=== PATIENT | female | born 1945 | race African-American/Black ===

== ENCOUNTER 2022-02-17 08:48 | Emergency (ER) | payer MEDICARE, SELFPAY ==
--- NOTE | ~2022-02-17 | CT_ITS ---
EXAMINATION: CT abdomen pelvis w con DATE: 02/17/2022 11:18 INDICATION: Lower abdominal pain TECHNIQUE: Computed tomography (CT) of the abdomen and pelvis was performed with 100 CC Omnipaque 350 intravenous contrast. Automated exposure control and iterative reconstruction technique were employe d. Exam dose: 218.17 mGy-cm total exam DLP. COMPARISON: 09/05/2016 CT abdomen pelvis FINDINGS: The lung bases are clear of infiltrate or consolidation. Normal heart size. The gallbladder is absent. No bile duct dilatation is noted. No hepatic, splenic, pancreatic, and adr enal or renal space-occupying mass lesion is detected. Approximately 10 x 13 mm wedge-shaped area of diminished enhancement posterolateral aspect of the rig ht kidney, new since 2017; this may be due to renal infarct, focal pyelonephritis, less likely renal neoplasm. No urinary tract calculus or hydroureteronephrosis. The urinary bladder is unremarkable. Enlarged retroverted uterus with numerous calcified fibroids. There is extensive abdominal aortic calcification as well as prominent calcification at the origin th e celiac artery, prominent superior mesenteric artery calcification, prominent proximal renal artery calcifications. There is prominent calcification of the iliac and femoral arteries. No abdominal aort ic aneurysm. No intraperitoneal or retroperitoneal or pelvic mass lesion or adenopathy or ascites is noted. Normal appendix. No bowel obstruction or intraperitoneal free air is detected. There is a prominent a mount fecal material in the colon. Small fat-containing umbilical hernia. Prominent degenerative spurring in the lower thoracic spine. Mild degenerative spurring of the lumbar spine. Degenerative change at the apophyseal joints with associated grade 1 anterolisthesis at L4-5. Multiple healed posterior left rib fractures. IMPRESSION: Hepatic steatosis Status post cholecystectomy Focal diminished enhancement in the posterolateral lower pole right kidney; differential diagnosis in cludes renal infarct, pyelonephritis, less likely renal neoplasm Small sliding hiatal hernia Normal appendix Enlarged retroverted uterus with numerous calcified fibroids Reviewed, dictated and finalized at [facility]. Reviewed, dictated and finalized at location [facility]. ABLE IRRIGATION OPERATOR IMPRESSION: Hepatic steatosis Status post cholecystectomy Focal diminished enhancement in the posterolateral lower pole right kidney; dif ferential diagnosis includes renal infarct, pyelonephritis, less likely renal n eoplasm Small sliding hiatal hernia Normal appendix Enlarged retroverted uterus with numerous calcified fibroids
[2022-02-17 09:08] VITALS: BP 130/75; PULSE 78; RESP 18; TEMP 36.6; O2SAT 96
--- NOTE | 2022-02-17 09:32 | ED.ABDPAIN ---
HPI - Abdominal Pain General Chief Complaint: Abdominal Pain Stated Complaint: abd pa Time Seen by Provider: 02/17/22 09:15 Source: patient and family Mode of arrival: ambulatory Limitations: no limitations History of Present Illness HPI narrative: This is a 76-year-old female that presents to the emergency department for urinary symptoms ongoing since last night. Reports frequency and urinary incontinence. Reports incontinence is chronic for her though. She does see a urogynecologist in [place] for this. She wears a diaper chronically. She is having some discomfort in her lower abdomen/bladder. Denies fever, vomiting, flank pain, or hematuria. Related Data Allergies Allergy/AdvReac Type Severity Reaction Status Date / Time Penicillins Allergy Intermediate Swelling Verified 02/17/22 09:22 Review of Systems Review of Systems: CONSTITUTIONAL: Denies fever GASTROINTESTINAL: Reports abdominal pain. Denies nausea, vomiting GENITOURINARY: Reports dysuria. Denies hematuria. All systems reviewed & are unremarkable except as noted in HPI and below PMFSH Past Medical History Medical History (Updated 02/17/22 @ 14:43 by Aysha Godinez PA-C) History of diabetes mellitus History of hyperlipidemia History of hypertension Surgical History Surgical History (Updated 02/17/22 @ 09:37 by Aysha Godinez PA-C) History of cholecystectomy Social History Social History (Updated 02/17/22 @ 09:37 by Aysha Godinez PA-C) Smoking status: Former smoker Exam Narrative: GENERAL: Well-appearing, well-nourished, and in no acute distress. HEAD: Normocephalic, atraumatic. EYES: EOMI. CHEST: Clear to auscultation. No respiratory distress. No wheezes rales or rhonchi HEART: Regular rate and rhythm. No murmur heard. Normal peripheral pulses. ABDOMEN: Soft, nondistended, normal active bowel sounds. Mild tenderness to palpation throughout the lower abdomen, without guarding. No CVA tenderness EXTREMITIES: Normal range of motion. No edema. SKIN: Warm, dry, no rash. NEURO: No focal deficits. Alert and oriented x3. PSYCH: Normal mood and affect Course Course Emergency Course: Patient and family updated on work-up. Resting comfortably. Requesting water Consultations Consultation #1: Spoke with Dr. Mckeon, urology had [facility], no intervention needed at this time if this is a renal infarct. Recommends further work-up for cause of possible infarct Date: 02/17/22 Consultation #2: Spoke with hospitalist about patient and workup. Recommends further outpatient evaluation and management Date: 02/17/22 Consultation #3: Spoke with patient's primary doctor who will follow up in clinic Date: 02/17/22 Vital Signs Vital signs: Vital Signs Temperature 97.9 F 02/17/22 09:08 Pulse Rate 78 02/17/22 09:08 Respiratory Rate 18 02/17/22 09:08 Blood Pressure 130/75 02/17/22 09:08 Pulse Oximetry 96 02/17/22 09:08 Temperature 97.9 F 02/17/22 09:08 Pulse Rate 78 02/17/22 09:08 Respiratory Rate 18 02/17/22 09:08 Blood Pressure 130/75 02/17/22 09:08 Pulse Oximetry 96 02/17/22 09:08 MDM - Abdominal Pain MDM Narrative Medical decision making narrative: Patient presents emergency department for lower abdominal pain and urinary symptoms ongoing since yesterday. She is afebrile and nontoxic-appearing. Her vitals are stable. CBC with white blood cell count of 4.1. Also shows normocytic anemia with hemoglobin of 11.1. Metabolic panel with normal kidney function. UA without evidence of infection. Influenza and COVID screens are negative. CT scan of the abdomen and pelvis shows chronic findings as well as a focal diminished area of enhancement in the posterior lateral lower pole the right kidney. Differential diagnosis includes renal infarct, pyelonephritis, less likely renal neoplasm. I do not suspect pyelonephritis as her urine is normal. She is afebrile without leukocytosis. Patient follows with urology [facility]
[2022-02-17 09:44] LABS: Basophils Percent Auto 0.2 % (0.2-1.2); Eosinophils Absolute Auto 0.1 K/mm3 (0-0.3); Eosinophils Percent Auto 1.9 % (0-4.4); Hematocrit 35.1 % (37.0-47.0); Hemoglobin 11.1 g/dL (12.0-15.0); Lymphocytes Absolute Auto 1.56 K/mm3 (0.9-3.2); Mean Corpuscular HGB Conc 31.6 g/dl (32-36); Mean Corpuscular Hemoglobin 29.2 pg (26-34); Mean Corpuscular Volume 92.4 fl (80-100); Mean Platelet Volume 10.3 fl (7.4-10.4); Monocytes Absolute Auto 0.3 K/mm3 (0.1-0.6); Monocytes Percent Auto 6.8 % (2.6-8.5); Neutrophils Absolute Auto 2.2 K/mm3 (1.3-6.7); Neutrophils Percent Auto 53.1 % (45.5-73.1); Platelet Count Result 196 k/mm3 (150-375); Red Cell Distribution Width 11.4 % (11.5-14.5); White Blood Count 4.1 K/mm3 (4.5-10.0)
[2022-02-17 10:00] LABS: Alanine Aminotransferase 16 U/L (6-35); Albumin Level 4.4 g/dL (3.5-5.1); Alkaline Phosphatase 75 U/L (38-126); Anion Gap 6 mmol/L (8-16); Aspartate Amino Transferase 24 U/L (14-36); Bilirubin,Total 0.5 mg/dL (0.2-1.3); Blood Urea Nitrogen 19 mg/dL (7-17); Calcium 9.3 mg/dL (8.4-10.2); Carbon Dioxide 31 mmol/L (22-30); Chloride 100 mmol/L (98-107); Estimated CRCL calculation 46 ml/min; Estimated Glomerular Filt Rate > 60; Glucose 195 mg/dL (65-110); Lipase 116 U/L (23-300); Potassium 3.9 mmol/L (3.4-5.0); Sodium 137 mmol/L (137-145)
[2022-02-17 10:20] LABS: Add Urine Microscopic? YES; Appearance Urine Clear (Clear); Bilirubin Urine Negative (Negative); Blood Urine Trace-Intact (Negative); Color Urine Yellow (Yellow); Glucose Urine UA Negative (Negative); Ketones Urine Negative (Negative); Leukocyte Esterase Ur Negative LEU/UL (Negative); Nitrate Urine Negative (Negative); Protein Urine Negative (Negative); Urobilinogen Urine 0.2 mg/dL (<2.0)
[2022-02-17 10:40] LABS: Mucus Urine Rare /lpf; RBC Urine 0-2 /hpf (0-2)
[2022-02-17 11:00] VITALS: BP 150/72; PULSE 72; RESP 16; O2SAT 98
--- NOTE | 2022-02-17 12:06 | ECG_ITS ---
Measurements Intervals [place] Rate: 92 P: 68 PA: 183 QRS: -35 QRSD: 93 T: 33 QT: 387 QTc: 481 Interpretive Statements SINUS RHYTHM POSSIBLE LEFT ATRIAL ENLARGEMENT LOW QRS VOLTAGE IN PRECORDIAL LEADS ANTEROSEPTAL INFARCT, AGE INDETERMINATE INFERIOR INFARCT, AGE INDETERMINATE BASELINE ARTIFACT- I, II, AVR ABNORMAL ECG NO PREVIOUS ECG AVAILABLE FOR COMPARISON Electronically Signed On 02-17-2022 14:48:14 LEGAL SECRETARY RECEPTIONIST by Ajith Jimenez D.O.
[2022-02-17 13:02] LABS: CRP 0.5 mg/dL (<1.0)
[2022-02-17 13:11] VITALS: BP 138/87; PULSE 72; RESP 16; O2SAT 100
[2022-02-17 13:16] VITALS: BP 151/87; PULSE 68; RESP 20; O2SAT 100
[2022-02-17 13:50] LABS: Influenza A QL RT-PCR Negative (Negative); Influenza B QL RT-PCR Negative (Negative); SARS-CoV-2 RNA PCR Negative
[2022-02-17] MEDS: SODIUM CHLORIDE 0.9% IV 500 ML 999 ML IV CONT (14:25)
[2022-02-17 14:31] VITALS: BP 161/88; PULSE 70; RESP 20; O2SAT 100
[2022-02-17 15:15] VITALS: BP 155/82; PULSE 70; RESP 18; O2SAT 96
[2022-02-17 15:36] LABS: Prothrombin Time 12.8 Seconds (11.1-14.7)
[2022-02-17 15:37] LABS: Partial Thromboplastin Time 29.2 SECONDS (22.3-36.8)
[2022-02-17 15:57] LABS: Erythrocyte Sedimentation Rate 42 mm/hr (0-20)
[2022-02-20 04:10] LABS: Lupus dRVVT Screen 35 sec (<=45); PTT-LA Screen 33 sec (<=40)
[2022-02-21 07:49] LABS: Antithrombin III Activity 163 % normal (80-135); Protein C Antigen 115 % normal (70-140)
[2022-02-21 09:07] LABS: Anti Nuclear Antibody Titer 1:40 (Negative)
[2022-02-22 18:16] LABS: Factor V (Leiden) Mutation NEGATIVE
[2022-02-23 04:25] LABS: Anti Cardio Antibody IgM 5.4 MPL-U/mL (<20.0); Anti Cardiolipin Antibody IgG <2.0 GPL-U/mL (<20.0)
== END 2022-02-17 15:20 | disposition home or self-care (01) ==
PROVIDERS: Emergency Medicine; Emergency Provider Physician Assistant; PCP Family Medicine
DX: R93.421 Abnormal radiologic findings on diagnostic imaging of right kidney (principal); R10.30 Lower abdominal pain, unspecified; Z20.822 Contact with and (suspected) exposure to COVID-19; E11.9 Type 2 diabetes mellitus without complications; E78.5 Hyperlipidemia, unspecified; I10 Essential (primary) hypertension; Z87.891 Personal history of nicotine dependence; K76.0 Fatty (change of) liver, not elsewhere classified; K44.9 Diaphragmatic hernia without obstruction or gangrene; N85.4 Malposition of uterus; R94.31 Abnormal electrocardiogram [ECG] [EKG]
CPT/HCPCS: 36415; 51701; 74177; 80053; 81001; 81240; 81241; 81291; 83690; 85025; 85300; 85302; 85303; 85306; 85610; 85613; 85652; 85730; 86038; 86039; 86140; 86147; 87086; 87636; 93005; 96361; 96365; 99284; J0131; J7040; Q9967

== ENCOUNTER 2022-03-24 17:45 | Emergency (ER) | payer MEDICARE, SELFPAY ==
--- NOTE | ~2022-03-24 | CT_ITS ---
EXAMINATION: CT abdomen pelvis w con DATE: 03/24/2022 21:58 INDICATION: Lower abdominal pain TECHNIQUE: Computed tomography (CT) of the abdomen and pelvis was performed with 100 mL Omnipaque-350 intravenous contrast. Automated exposure control and iterative reconstruction technique were employe d. The dose-length product was 216.93 mGy-cm. COMPARISON: 02/17/2022 FINDINGS: Mild atelectasis in the bilateral lower lungs. Heart size is normal. No pericardial or pleural effusi on. Unchanged mild intra and extra hepatic biliary ductal dilation likely related to prior cholecyste ctomy. Liver is otherwise unremarkable. Pancreas, spleen and bilateral adrenal glands are normal. Sma ll regions of chronic cortical scarring at both kidneys likely sequela of prior infection or infarcti on. Bowels including the appendix are normal. Fibroid uterus with multiple calcified fibroids. Bilate ral adnexa are unremarkable. No free intraperitoneal gas or fluid. No pathologically enlarged abdomin al or pelvic lymphadenopathy. There is calcified atherosclerosis of the aorta and many of the other a rteries. Moderate lumbar spondylosis with 4 mm anterolisthesis L4 on L5. IMPRESSION: 1. No acute intra-abdominal/pelvic process. Normal appendix. 2. Fibroid uterus. Reviewed, dictated and finalized at location [facility]. C TYPOGRAPHER
[2022-03-24 18:02] VITALS: BP 129/69; PULSE 93; RESP 18; TEMP 36.9; O2SAT 100
--- NOTE | 2022-03-24 19:54 | ED.ABDPAIN ---
HPI - Abdominal Pain General Chief Complaint: Abdominal Pain Stated Complaint: pelvic pain Time Seen by Provider: 03/24/22 19:46 History of Present Illness HPI narrative: Patient is a 77-year-old female with a history of uterine prolapse here for evaluation of urinary retention. Patient states that she has been unable to urinate except for small volumes throughout the day. She is also having some acute on chronic pelvic pain in her suprapubic region since being unable to urinate. Reports nausea and vomiting over the past month. No fevers or chills, dysuria, urgency, flank pain. Patient was seen here in February for urinary symptoms and was found to have a possible renal infarction; followed up as an outpatient with her PCP and this was reassuring, repeat imaging of the kidneys did not show infarct. Related Data Allergies Allergy/AdvReac Type Severity Reaction Status Date / Time Penicillins Allergy Intermediate Swelling Verified 02/17/22 09:22 Review of Systems Review of Systems: Gen.: Denies fevers or chills Eyes: Denies eye pain or visual change ENT: Denies congestion Respiratory: Denies shortness of breath or cough CV: Denies chest pain or palpitations GI: Reports suprapubic abdominal pain reports urinary retention Musculoskeletal: Denies back pain or muscle pain Neuro: Denies numbness, tingling, weakness or focal weakness Skin: Denies rash Except as documented, all other systems reviewed and negative PMFSH Past Medical History Medical History History of diabetes mellitus History of hyperlipidemia History of hypertension Surgical History Surgical History History of cholecystectomy Social History Social History (Updated 02/17/22 @ 09:37 by Aysha Godinez PA-C) Smoking status: Former smoker Exam Narrative: APPEARANCE: Well appearing, no pain in distress, well-nourished. Head: Normocephalic and atraumatic. EYES: PERRLA/EOMI, conjunctivae clear NOSE: No nasal drainage EARS: External ear normal in appearance THROAT: Oropharynx is clear. Mucous membranes are moist. NECK: Supple. No adenopathy, no masses. RESPIRATORY: Airway patent, respirations nonlabored. Clear to auscultation bilaterally, no rales, rhonchi, wheezing. CARDIOVASCULAR: Regular rate and rhythm without murmurs, rubs, or gallops. ABDOMINAL:Slight tenderness to palpation in suprapubic region. Normoactive bowel sounds. Soft, nondistended. No rebound tenderness or guarding. MUSCULOSKELETAL: Extremities are warm and well-perfused. Moves all extremities well. No edema. NEURO: Normal speech. No focal neurologic deficits. SKIN: Skin is warm and dry. No rashes. PSYCHIATRIC: Normal affect/mood.. Course Vital Signs Vital signs: Vital Signs Temperature 98.5 F 03/24/22 18:02 Pulse Rate 93 03/24/22 18:02 Respiratory Rate 18 03/24/22 18:02 Blood Pressure 129/69 03/24/22 18:02 Pulse Oximetry 100 03/24/22 18:02 Oxygen Delivery Room Air 03/24/22 18:02 Temperature 98.5 F 03/24/22 18:02 Pulse Rate 93 03/24/22 18:02 Respiratory Rate 18 03/24/22 18:02 Blood Pressure 129/69 03/24/22 18:02 Pulse Oximetry 98 03/24/22 21:45 Oxygen Delivery Room Air 03/24/22 18:02 MDM - Abdominal Pain MDM Narrative Medical decision making narrative: 77-year-old female with a history of uterine prolapse and chronic issues with overflow incontinence here for evaluation of urinary retention over the past day. Bladder scan shows 200 cc of urine in her bladder but patient states she cannot urinate. Patient was straight cathed for sample which does not show any evidence of infection. Her basic labs are unremarkable aside from hemoglobin of 9.8 which appears chronic. Denies acute bleeding. CT abdomen pelvis shows a fibroid uterus but no acute process. Patient was able to void on her own while in the ED. Pain m
[2022-03-24 20:40] LABS: Basophils Percent Auto 0.2 % (0.2-1.2); Eosinophils Absolute Auto 0.2 K/mm3 (0-0.3); Eosinophils Percent Auto 3.5 % (0-4.4); Hematocrit 30.9 % (37.0-47.0); Hemoglobin 9.8 g/dL (12.0-15.0); Lymphocytes Absolute Auto 2.27 K/mm3 (0.9-3.2); Lymphocytes Percent Auto 44.5 % (18.3-44.2); Mean Corpuscular HGB Conc 31.7 g/dl (32-36); Mean Corpuscular Hemoglobin 28.6 pg (26-34); Mean Corpuscular Volume 90.1 fl (80-100); Mean Platelet Volume 10.4 fl (7.4-10.4); Monocytes Absolute Auto 0.4 K/mm3 (0.1-0.6); Monocytes Percent Auto 7.6 % (2.6-8.5); Neutrophils Absolute Auto 2.3 K/mm3 (1.3-6.7); Neutrophils Percent Auto 44.2 % (45.5-73.1); Platelet Count Result 261 k/mm3 (150-375); Red Blood Count 3.43 M/mm3 (4.2-5.4); Red Cell Distribution Width 11.7 % (11.5-14.5); White Blood Count 5.1 K/mm3 (4.5-10.0)
[2022-03-24 20:50] LABS: Alanine Aminotransferase 11 U/L (6-35); Alkaline Phosphatase 100 U/L (38-126); Anion Gap 6 mmol/L (8-16); Aspartate Amino Transferase 22 U/L (14-36); Bilirubin,Total 0.4 mg/dL (0.2-1.3); Blood Urea Nitrogen 16 mg/dL (7-17); Calcium 9.1 mg/dL (8.4-10.2); Carbon Dioxide 30 mmol/L (22-30); Chloride 100 mmol/L (98-107); Estimated CRCL calculation 37 ml/min; Estimated Glomerular Filt Rate > 60; Glucose 108 mg/dL (65-110); Potassium 4.1 mmol/L (3.4-5.0); Sodium 136 mmol/L (137-145)
[2022-03-24 21:31] LABS: Appearance Urine Clear (Clear); Bilirubin Urine Negative (Negative); Blood Urine Negative (Negative); Color Urine Yellow (Yellow); Glucose Urine UA Negative (Negative); Ketones Urine Trace mg/dL (Negative); Leukocyte Esterase Ur Negative LEU/UL (Negative); Nitrate Urine Negative (Negative); Protein Urine Negative (Negative); Specific Grav Ur 1.015 (1.001-1.035); Urobilinogen Urine 0.2 mg/dL (<2.0)
[2022-03-24] MEDS: MORPHINE SULFATE (*CRX) 4 MG/ML INJ IV PUSH (21:39)
[2022-03-24 21:41] VITALS: O2SAT 100
[2022-03-24 21:45] VITALS: O2SAT 98
[2022-03-24 21:46] LABS: Bacteria Urine Trace /hpf; Mucus Urine Rare /lpf; Squamous Epithelial Cell Urine Rare /hpf (Few); WBC Urine 0-3 /hpf
[2022-03-24 21:48] LABS: Add Urine Microscopic? YES
== END 2022-03-24 23:20 | disposition home or self-care (01) ==
PROVIDERS: Emergency Provider Physician Assistant; PCP Family Medicine
DX: D25.9 Leiomyoma of uterus, unspecified (principal); E11.9 Type 2 diabetes mellitus without complications; E78.5 Hyperlipidemia, unspecified; I10 Essential (primary) hypertension
CPT/HCPCS: 36415; 74177; 80053; 81001; 85025; 96374; 99284; J2270; Q9967

== ENCOUNTER 2022-04-18 11:30 | Inpatient (IN) | payer MEDICARE, SELFPAY ==
[2022-04-18] VITALS (49 sets, daily range): BP systolic 85–183; BP diastolic 60–107; PULSE 93–182; RESP 10–34; TEMP 36.4–36.9; O2SAT 75–100; BMI 22.6
--- NOTE | ~2022-04-18 | US_ITS ---
EXAMINATION: US pelvic complete w TV DATE: 04/18/2022 17:41 INDICATION: Lower abdominal pain TECHNIQUE: Multiple transabdominal and endovaginal sonographic images of the pelvis were obtained. COMPARISON: CT, 03/24/2022 FINDINGS: The uterus measures 5.8 x 7.8 x 5.7 cm. The endometrial complex measures 1 mm. There are mu ltiple calcified and noncalcified fibroids of the uterus. The right ovary measures 2.1 x 2.1 x 0.8 cm . The left ovary measures 1.6 x 2.1 x 0.6 cm. There is normal vascular flow in the ovaries. There is no free fluid in the pelvis. IMPRESSION: 1. Fibroid uterus. Reviewed, dictated and finalized at location F. R MIXER IMPRESSION: 1. Fibroid uterus.
--- NOTE | ~2022-04-18 | BM_ITS ---
EXAMINATION: CCL bone marrow asp w bx diag DATE: 04/23/2022 08:59 INDICATION: Anemia. TECHNIQUE: A time-out was performed to verify the patient's name, date of , and procedure to b e performed. The procedure including the risks, benefits, and alternatives was discussed with the pat ient. Risks discussed included bleeding and infection. The patient understood the risks and agreed to proceed. The skin overlying the left ilium was prepped and draped in usual sterile fashion. Anesth etic was administered with 1% lidocaine subcutaneously. 50 mcg fentanyl IV was given for pain control . An 11 gauge needle was inserted into the ilium with fluoroscopic guidance. Bone marrow was aspirat ed. An 8 gauge needle was then inserted into the ilium with fluoroscopic guidance. A core bone marrow biopsy was obtained. There were no immediate complications. Fluoroscopy exposure time was 0.0 minute s. The total number of images was 10. FINDINGS: Real-time fluoroscopy demonstrates a marker overlying the left posterior superior iliac spi ne. IMPRESSION: 1. Fluoro-guided bone marrow aspiration. 2. Fluoro-guided bone marrow core biopsy. Reviewed, dictated and finalized at location A. ADMINISTRATOR
--- NOTE | ~2022-04-18 | CT_ITS ---
EXAMINATION: CT abdomen pelvis w con INDICATION: Nausea and vomiting, pelvic pain TECHNIQUE: Computed tomographic images of the abdomen and pelvis were obtained after the administrati on of 100 cc of Omnipaque 350 intravenous contrast. The dose-length product (DLP) was 209.65 mGy-cm. Automated exposure control and iterative reconstruction technique were employed. COMPARISON: 03/24/2022 FINDINGS: Minimal dependent atelectasis is present in the lung bases. The heart size is normal. There is a small sliding hiatal hernia. There is wall thickening of the stomach. The gallbladder is surgic ally absent. There is mild enlargement of the common bile duct and central intrahepatic ducts which i s likely due to post cholecystectomy state. The liver, spleen, pancreas, and adrenal glands are nilesh l. Again noted are small areas of cortical scarring in the kidneys. There is calcified atherosclerosi s of the aorta and many of the other arteries. No pathologically enlarged abdominal or pelvic lymph n odes are identified. No free intraperitoneal gas or evidence of bowel obstruction. There is moderate distention of the urinary bladder. Multiple calcified uterine fibroids are noted. There is mild lumba r spondylosis. IMPRESSION: 1. Moderate distention of the urinary bladder. 2. Wall thickening of the stomach which may reflect gastritis. Reviewed, dictated and finalized at location F. GN TECHNICIAN
--- NOTE | 2022-04-18 12:05 | ED.ABDPAIN ---
HPI - Abdominal Pain General Chief Complaint: Abdominal Pain <ADRYAN Hinson Last Filed: 04/19/22 16:03> Stated Complaint: abd/rectal pain <ADRYAN Hinson Last Filed: 04/19/22 16:03> Time Seen by Provider: 04/18/22 11:51 <ADRYAN Hinson Last Filed: 04/19/22 16:03> History of Present Illness HPI narrative: 77-year-old female with a history of chronic pelvic pain here for evaluation of acute on chronic pelvic pain over the past day. Patient has seen [facility] and is set to see urogyn on Tuesday. Daughter states that patient cannot wait due to severity of pain today. No relief after [place] which was prescribed by her merchandise shopper. Unclear etiology of pain, patient has been told that she had a fibroid but also uterine prolapse that both might of been contributing. She has chronic issues with urinary retention. Denies any fevers, chills, nausea or vomiting, systemic symptoms. No rectal bleeding or vaginal bleeding. She has an EGD scheduled on Tuesday for recurrent nausea and vomiting. Had a CT scan at the end of February that was normal aside from fibroids. <ADRYAN Hinson Last Filed: 04/19/22 16:03> Related Data Home Medications: Home Medications Medication Instructions Recorded Confirmed atorvastatin 40 mg tablet 40 mg PO HS 03/26/22 04/18/22 dicyclomine 20 mg tablet 20 mg PO BID 03/26/22 04/18/22 glimepiride 2 mg tablet 2 mg PO QAM 03/26/22 04/18/22 metformin 1,000 mg tablet 1,000 mg PO DAILY 03/26/22 04/18/22 carbidopa 25 mg-levodopa 100 mg 1 tablet PO TID 04/18/22 04/19/22 tablet pantoprazole 40 mg tablet,delayed 40 mg PO DAILY 04/18/22 04/18/22 release aspirin 81 mg tablet 81 mg PO DAILY 04/19/22 04/19/22 <ADRYAN Hinson Last Filed: 04/19/22 16:03> Allergies/Adverse Reactions: Allergies Allergy/AdvReac Type Severity Reaction Status Date / Time Penicillins Allergy Intermediate Swelling Verified 03/26/22 10:20 <Aysha Argueta PA-C - Last Filed: 04/19/22 16:03> Review of Systems Review of Systems: Gen.: Denies fevers or chills Eyes: Denies eye pain or visual change ENT: Denies congestion Respiratory: Denies shortness of breath or cough CV: Denies chest pain or palpitations GI: Denies abdominal pain nausea, emesis or diarrhea reports lower pelvic pain Musculoskeletal: Denies back pain or muscle pain Neuro: Denies numbness, tingling, weakness or focal weakness Skin: Denies rash Except as documented, all other systems reviewed and negative <ADRYAN Hinson Last Filed: 04/19/22 16:03> [facility] Past Medical History Medical History: Medical History CVA (cerebral vascular accident) Dementia due to Parkinson's disease Depression with anxiety Essential hypertension Fibroid uterus GERD (gastroesophageal reflux disease) Hemolytic anemia History of ectopic Hyperlipidemia Kidney stones Type 2 diabetes mellitus <Aysha Argueta PA-C - Last Filed: 04/19/22 16:03> Surgical History Surgical History: Surgical History History of cholecystectomy Status post cataract extraction and insertion of intraocular lens of left eye <Aysha Argueta PA-C - Last Filed: 04/19/22 16:03> Family History Family History: Family History Mother Diabetes mellitus Sibling Diabetes mellitus Sibling Heart attack Father Homicide Victim of homicide Daughter Hypothyroidism <Aysha Argueta PA-C - Last Filed: 04/19/22 16:03> Social History Social History: Social History Social History: The patient lives with her son and [id number] and their children. She has lived with them since 2021. She is a retired OBGYN nurse. She has 3 sons and 1
[2022-04-18 12:09] LABS: Basophils Percent Auto 0.3 % (0.2-1.2); Eosinophils Absolute Auto 0.1 K/mm3 (0-0.3); Eosinophils Percent Auto 1.2 % (0-4.4); Hematocrit 25.8 % (37.0-47.0); Hemoglobin 7.9 g/dL (12.0-15.0); Immature Granulocyte Absolute 0.03 K/mm3 (0.00-0.031); Immature Granulocyte Percent A 0.4 % (0-0.5); Lymphocytes Absolute Auto 2.08 K/mm3 (0.9-3.2); Lymphocytes Percent Auto 30.4 % (18.3-44.2); Mean Corpuscular HGB Conc 30.6 g/dl (32-36); Mean Corpuscular Hemoglobin 30.4 pg (26-34); Mean Corpuscular Volume 99.2 fl (80-100); Mean Platelet Volume 10.4 fl (7.4-10.4); Monocytes Absolute Auto 0.6 K/mm3 (0.1-0.6); Monocytes Percent Auto 8.9 % (2.6-8.5); Neutrophils Percent Auto 58.8 % (45.5-73.1); Platelet Count Result 263 k/mm3 (150-375); Red Cell Distribution Width 12.8 % (11.5-14.5); White Blood Count 6.8 K/mm3 (4.5-10.0)
[2022-04-18 12:21] LABS: Alanine Aminotransferase 11 U/L (6-35); Albumin Level 4.8 g/dL (3.5-5.1); Alkaline Phosphatase 95 U/L (38-126); Anion Gap 8 mmol/L (8-16); Aspartate Amino Transferase 26 U/L (14-36); Bilirubin,Total 3.3 mg/dL (0.2-1.3); Blood Urea Nitrogen 32 mg/dL (7-17); Calcium 9.9 mg/dL (8.4-10.2); Carbon Dioxide 27 mmol/L (22-30); Chloride 100 mmol/L (98-107); Estimated Glomerular Filt Rate > 60; Glucose 204 mg/dL (65-110); Lipase 231 U/L (23-300); Potassium 3.4 mmol/L (3.4-5.0); Sodium 135 mmol/L (137-145)
[2022-04-18 12:59] LABS: Prothrombin Time 13.1 Seconds (11.1-14.7)
[2022-04-18 13:00] LABS: Partial Thromboplastin Time 29.1 SECONDS (22.3-36.8)
[2022-04-18 13:03] LABS: Iron 235 ug/dL (37-170); Lactate Dehydrogenase 282 U/L (120-246)
[2022-04-18 13:12] LABS: Percent Iron Saturation 92 % (20-50)
[2022-04-18 13:21] LABS: Appearance Urine Clear (Clear); Bacteria Urine None Seen /hpf; Bilirubin Urine 1+ (Negative); Blood Urine Negative (Negative); Color Urine Dark Yellow (Yellow); Glucose Urine UA Negative (Negative); Ketones Urine Trace mg/dL (Negative); Leukocyte Esterase Ur Trace LEU/UL (Negative); Need Manual Microscopic Reviewed; Nitrate Urine Positive (Negative); Non Pathogenic Casts 0-2; Protein Urine 2+ mg/dL (Negative); RBC Urine 0-2 /hpf (0-2); Specific Grav Ur 1.021 (1.001-1.035); Squamous Epithelial Cell Urine None seen /hpf (Few); WBC Urine 0-5 /hpf
[2022-04-18 13:22] LABS: Add Urine Microscopic? YES
[2022-04-18] MEDS: SODIUM CHLORIDE 0.9% IV 1,000 ML 999 ML IV CONT (13:23)
[2022-04-18] MEDS: MORPHINE SULFATE (*CRX) 4 MG/ML INJ IV PUSH ×2 (13:23→18:44)
[2022-04-18] MEDS: ONDANSETRON INJ 4 MG/2 ML VIAL IV PUSH ×2 (13:24→19:47)
[2022-04-18] MEDS: LACTATED RINGERS 1,000 ML 999 ML IV CONT (18:44)
--- NOTE | 2022-04-18 19:15 | PC.NURSE ---
Assumed care of pt. at this time. Report from FRANCHESKA Wray
--- NOTE | 2022-04-18 19:50 | PC.NURSE ---
assumed care of pt. at this time. Report from FRANCHESKA Wray
[2022-04-18 19:58] LABS: Glucose Point of Care 118 mg/dl (65-105)
[2022-04-18 20:22] LABS: Lactic Acid Reflex 2.6 mmol/L (0.7-2.0)
[2022-04-18] MEDS: dilTIAZem HCl INJ 25 MG/5 ML VIAL 20 MG IV PUSH (21:39)
[2022-04-18] MEDS: dilTIAZem 100 MG/100 ML 100 MG/100 ML BAG IV CONT (21:39)
--- NOTE | 2022-04-18 21:44 | ECG_ITS ---
Measurements Intervals [place] Rate: 180 P: CA: 0 QRS: -41 QRSD: 123 T: 88 QT: 271 QTc: 470 Interpretive Statements ATRIAL FIBRILLATION WITH RAPID VENTRICULAR RESPONSE LEFT AXIS DEVIATION LEFT BUNDLE BRANCH BLOCK BASELINE ARTIFACT- I, II, AVR, AVL, AVF ABNORMAL ECG COMPARED TO ECG 02/17/2022 14:34:33 ATRIAL FIBRILLATION NOW PRESENT Electronically Signed On 04-19-2022 8:22:54 GRANITE SETTER by Ajith Jimenez D.O.
--- NOTE | 2022-04-18 21:44 | ECG_ITS ---
Measurements Intervals [place] Rate: 121 P: MD: 0 QRS: -29 QRSD: 114 T: 52 QT: 353 QTc: 501 Interpretive Statements ATRIAL FIBRILLATION WITH RAPID VENTRICULAR RESPONSE VENTRICULAR PREMATURE COMPLEX ANTEROSEPTAL INFARCT, AGE INDETERMINATE INFERIOR INFARCT, AGE INDETERMINATE BORDERLINE ST-T WAVE ABNORMALITY- HIGH LATERAL LEADS ABNORMAL ECG COMPARED TO ECG 02/17/2022 14:34:33 ATRIAL FIBRILLATION NOW PRESENT Electronically Signed On 04-19-2022 6:20:15 ESTIMATION MANAGER by Ajith Jimenez D.O.
--- NOTE | 2022-04-18 21:45 | PC.NURSE ---
2132 RN noted pt. HR to be 177. ERP made aware, ekg obtained. pt. placed on paddles 2133 VORB 6 mg adenosine given IVP 2141 4 mg zofran given ivp vorb erp for nausea.
[2022-04-18] MEDS: ONDANSETRON INJ 4 MG/2 ML VIAL (21:54)
[2022-04-18 22:59] LABS: Reflex Lactic Acid Yes or No Add Lactic
--- NOTE | 2022-04-18 23:08 | PM.IMHP ---
H&P: HPI History of Present Illness Date/Time: 04/18/22 23:08 Chief Complaint: Nausea, vomiting and pelvic pain Narrative: 77-year-old female with a past medical history of Parkinson's disease with associated mild dementia, type 2 diabetes mellitus, GERD, and uterine fibroids with uterine prolapse who presented to the ER with lower pelvic pain and and nausea vomiting. Source of information is ER records, outpatient office note and patient report. The patient is a relatively good historian given her history of dementia. The patient has been having lower abdominal pain and urinary frequency for about 2 years. However for several months symptoms have evidently been worsening. She went to see Gynecology on the 26 of March who referred her to uro Gyne. The triage notes as the patient is from 3 times this week however the the patient states that she has been vomiting a lot more recently. She had been having intractable nausea and vomiting in the ER. She has had a history of problems with urinary retention in the past. CT in the ER demonstrated bladder distension. Initially they did not put a Archuleta catheter in the ER but the patient did approximately 600 mL of urine per straight catheterization per her report. After Archuleta catheter was placed patient had dark yellow urine present that was approximately another 600 mL. She does report sensation of incomplete bladder emptying most the time. She has been having pretty persistent dysuria but she cannot give me a time frame regarding her dysuria. She reports significant relief in her abdominal pain is she has had no further nausea vomiting since that time. She did received 3 doses of Zofran in the ER. Patient's EKG in the ER did demonstrate QT prolongation. Patient denies any rectal bleeding or vaginal bleeding. She denies melena or difficulty passing stools. Her last bowel movement was 3 days ago but she relates this is due to decreased oral intake. She has an appointment scheduled for an EGD on Tuesday with a financial economist in [place]. While the patient was down in the ER just a after she has had some episodes of vomiting she did flip into AFib RVR. Her heart rate was as high as 180s. The patient received adenosine without improvement in her symptoms. They also tried vagal maneuvers. Patient received Cardizem bolus and the patient's EKG seem more consistent with AFib RVR. Heart rate improved to the low 110s. Her blood pressures remained stable. She has no history of cardiomyopathy or cardiac arrhythmias in the past. Even with her heart in AFib the patient did not have any sensation of palpitations or heart racing. She denied any chest pain. She denies any shortness of breath. She does have frequent symptoms of GERD and burning in her throat. She reports her emesis is clear without is bilious emesis or hematemesis. She reports that she feels ?chronic leak chilled and hot flashes. The patient does report history of hemolytic anemia. She reports that he was many many years ago. She does not remember the circumstances surrounding the hemolytic anemia. She denies any easy bruising or bleeding. She has not noticed any rashes. He denies any orthopnea and reports that she usually sleeps on her side or lying on her abdomen. She denies paroxysmal nocturnal dyspnea. She states that she does not know if she has any shortness of breath with activity as she is mostly sedentary. Review of Systems Review of Systems: 12 systems were reviewed with pertinent positives and negatives per HPI. Except as documented in the HPI, all other systems were reviewed and are negative. [facility] Past Medical History Medical History (Updated 04/19/22 @ 07:55 by Sydnee Fernando, ) CVA (cerebral vascular accident) Dementia due to Parkinson's disease Depression with anxiety Essential hypertension Fibroid uterus GERD (gastroesophageal reflux disease) Hemolytic anemia History of ectopic Hyperlipidemia Ki
--- NOTE | 2022-04-18 23:50 | PC.NURSE ---
This patient, Leonard Nunn, was admitted to IMU Room 207-01 on 04/18/22 at 2335. Patient/family oriented to hospital policies and general routines including ID bracelet, bed and alarms, visiting hours, pain management, procedures, bathroom and other care routines, personal items, smoking policy, room service/diet, and visiting hours. Information on how to activate the Rapid Response Team has been discussed. Patient/Family are encouraged to report perceived risks to care and to ask questions if they do not understand what they are told or what they should do.
[2022-04-19] VITALS (14 sets, daily range): BP systolic 108–143; BP diastolic 43–73; PULSE 78–106; RESP 12–18; TEMP 36.2–36.7; O2SAT 96–100; BMI 19.1
--- NOTE | 2022-04-19 | ECHO_ITS ---
Patient Info Name: Leonard Nunn Age: 77 years : 1945 Gender: Female Ht: 64 in Wt: 119 lbs BSA: 1.56 m2 HR: 86 bpm BP: 124 / 43 mmHg Heart Rhythm: Sinus Rhythm Exam Date: 04/19/2022 1:25 PM Exam Location: [facility] Patient Status: Outpatient Admit Date: 04/18/2022 Staff Ordering Physician: Sydnee Fernando DO Manager Document: Kendell Peterson RDCS, RT Attending Provider: Sydnee Fernando DO Referring Physician: Kassie DOTY; Exam Type: CA echo doppler color flow Study Info Indications I48.1 - Persistent atrial fibrillation Complete two-dimensional, color flow and Doppler transthoracic echocardiogram is performed. Strain analysis performed. Summary 1. Complete two-dimensional, color flow and Doppler transthoracic echocardiogram is performed. 2. Left ventricular chamber dimension is normal. 3. There is mildly increased left ventricular wall thickness. 4. Left ventricular systolic function is normal, estimated at 50-55%. 5. Cannot exclude regional wall motion abnormalities. 6. The left ventricular diastolic function is grade I diastolic dysfunction. 7. Global longitudinal strain is abnormal at -11 %. 8. Right ventricular systolic function is normal. 9. There is trace mitral valve regurgitation. 10. There is trace tricuspid valve regurgitation. Left Ventricle Cannot exclude regional wall motion abnormalities. Left ventricular chamber dimension is normal. Left ventricular systolic function is normal, estimated at 50-55%. There is mildly increased left ventricular wall thickness. The left ventricular diastolic function is grade I diastolic dysfunction. Global longitudinal strain is abnormal at -11 %. Right Ventricle Right ventricular chamber dimension is normal. Right ventricular systolic function is normal. Left Atria Left atrial chamber dimension is normal. Atrial Septum Intact interatrial septum visualized by color flow imaging. Aortic Valve The aortic valve is probable trileaflet. There is no aortic valve stenosis. There is no aortic valve regurgitation. Pulmonic Valve The pulmonic valve is not well visualized. Mitral Valve The mitral valve has normal leaflets. There is no mitral valve stenosis. There is trace mitral valve regurgitation. Tricuspid Valve There is trace tricuspid valve regurgitation. Pericardium/Pleural There is no pericardial effusion. Inferior Vena Cava Dilated inferior vena cava with <50% collapse upon inspiration consistent with elevated right atrial pressure, 15 mmHg. Aorta The aortic root size at the sinus of Valsalva is normal. Left Ventricular Outflow Tract Name Value Normal LVOT 2D LVOT Diameter 2.1 cm LVOT Doppler LVOT Peak Gradient 1 mmHg LVOT Mean Gradient 1 mmHg LVOT VTI 11 cm LVOT VTI/AV VTI Ratio 0.7 LVOT Stroke Volume 39 ml LVOT CO 3.3 l/min LVOT CI 2.1 l/min/m2 Mitral Valve
[2022-04-19 00:31] LABS: Immature Reticulocyte Fraction 20.8 % (3.0-15.9); Reticulocyte Hemoglobin Conten 33.4 pg (28.2-35.7); Reticulocyte Percent 5.25 % (0.7-4.3); Reticulocytes Absolute 0.14 B/L (32.2-175.7)
[2022-04-19 00:44] LABS: Lactic Acid 2.2 mmol/L (0.7-2.0); Magnesium 1.1 mg/dL (1.6-2.3)
[2022-04-19 01:16] LABS: Thyroid Stimulating Hormone 0.457 uIU/mL (0.465-4.680)
--- NOTE | 2022-04-19 01:21 | PC.NURSE ---
Attempted to call Rodneykalie Koroma (Daughter in Law) for patient update. Was unable to leave a message due to full mailbox. Patient is stable and without complaints.
[2022-04-19 01:26] LABS: Troponin I 0.168 ng/mL (0.000-0.034)
--- NOTE | 2022-04-19 02:01 | PC.NURSE ---
Vero Luther called, update given.
[2022-04-19] MEDS: PANTOPRAZOLE SODIUM IV 40 MG VIAL IV PUSH ×3 (02:11→16:26)
[2022-04-19] MEDS: MAGNESIUM SULF 4 GM/WATER100ML 4 GM/100 ML BAG IVPB (02:11)
[2022-04-19 02:32] LABS: Anion Gap 12 mmol/L (8-16); Blood Urea Nitrogen 20 mg/dL (7-17); Calcium 9.2 mg/dL (8.4-10.2); Carbon Dioxide 23 mmol/L (22-30); Chloride 100 mmol/L (98-107); Estimated CRCL calculation 59 ml/min; Estimated Glomerular Filt Rate > 60; Glucose 186 mg/dL (65-110); Potassium 3.5 mmol/L (3.4-5.0); Sodium 135 mmol/L (137-145)
[2022-04-19] MEDS: POTASSIUM CHLORIDE INJ 40 MEQ in SODIUM CHLORIDE 0.9% IV 500 ML 130 MEQ IVPB (03:21)
[2022-04-19] MEDS: SODIUM CHLORIDE 0.9% IV 1,000 ML 100 ML IV CONT ×2 (03:22→16:26)
[2022-04-19 04:30] LABS: Troponin I 0.474 ng/mL (0.000-0.034)
--- NOTE | 2022-04-19 06:00 | ECG_ITS ---
Measurements Intervals Pfeifer Rate: 99 P: 79 NJ: 172 QRS: -20 QRSD: 94 T: 37 QT: 404 QTc: 519 Interpretive Statements SINUS RHYTHM BORDERLINE R WAVE PROGRESSION, ANTERIOR LEADS CONSIDER INFERIOR INFARCT, AGE INDETERMINATE BASELINE ARTIFACT- V4-V6 ABNORMAL ECG COMPARED TO ECG 04/18/2022 21:44:10 SINUS RHYTHM NOW PRESENT Electronically Signed On 04-19-2022 6:28:42 [employer]EL [employer]IGGER by Ajith Jimenez D.O.
[2022-04-19 07:09] LABS: Lactic Acid Reflex 1.1 mmol/L (0.7-2.0)
[2022-04-19 07:45] LABS: Troponin I 0.573 ng/mL (0.000-0.034)
[2022-04-19 08:02] LABS: Hematocrit 24.6 % (37.0-47.0); Hemoglobin 7.4 g/dL (12.0-15.0); Mean Corpuscular HGB Conc 30.1 g/dl (32-36); Mean Corpuscular Hemoglobin 30.7 pg (26-34); Mean Corpuscular Volume 102.1 fl (80-100); Mean Platelet Volume 11.6 fl (7.4-10.4); Platelet Count Result 246 k/mm3 (150-375); Red Blood Count 2.41 M/mm3 (4.2-5.4); Red Cell Distribution Width 12.9 % (11.5-14.5); White Blood Count 8.2 K/mm3 (4.5-10.0)
[2022-04-19 08:18] LABS: Glucose Point of Care 181 mg/dl (65-105)
[2022-04-19 08:19] LABS: Alanine Aminotransferase 14 U/L (6-35); Albumin Level 4.3 g/dL (3.5-5.1); Alkaline Phosphatase 101 U/L (38-126); Anion Gap 13 mmol/L (8-16); Aspartate Amino Transferase 34 U/L (14-36); Bilirubin,Total 1.7 mg/dL (0.2-1.3); Blood Urea Nitrogen 19 mg/dL (7-17); Calcium 8.8 mg/dL (8.4-10.2); Carbon Dioxide 19 mmol/L (22-30); Chloride 104 mmol/L (98-107); Estimated CRCL calculation 59 ml/min; Estimated Glomerular Filt Rate > 60; Glucose 199 mg/dL (65-110); Lactate Dehydrogenase 303 U/L (120-246); Magnesium 3.1 mg/dL (1.6-2.3); Potassium 3.7 mmol/L (3.4-5.0); Sodium 136 mmol/L (137-145)
[2022-04-19] MEDS: DICYCLOMINE HCL 10 MG CAPSULE 20 MG PO ×2 (08:34→16:26)
[2022-04-19] MEDS: ASPIRIN 81 MG ENTERIC TABLET PO (08:34)
[2022-04-19] MEDS: CARBIDOPA/LEVODOPA 25/100 MG TABLET 2 TABLET PO ×3 (08:48→16:26)
--- NOTE | 2022-04-19 09:04 | PM.IMPN ---
Progress Note: A&P Assessment and Plan (1) Atrial fibrillation with rapid ventricular response: Code(s): I48.91 - Unspecified atrial fibrillation Status: Acute Assessment and Plan: The patient has new onset AFib RVR or at least resuming it is new onset is the patient was unaware of having palpitations or sensation of heart racing. Echocardiogram ordered She has responded well to Cardizem drip and Cardizem has been can continued. Cardiology has been consulted and appreciate recommendations Patient is not a candidate for active anticoagulation at this time given her acute on chronic anemia. Her iron studies are consistent with anemia of chronic disease versus some component of hemolytic anemia given her elevated bilirubin and LDH. Patient's haptoglobin and Tate testing or still pending. Vasc score is elevated and she would benefit from anticoagulation if hemoglobin were to stabilized. 04/19/22 Patient's Cardizem stopped and patient put on p.o. metoprolol by Cardiology. Echocardiogram revealed EF of 50-55%, cannot exclude wall motion abnormalities, grade 1 diastolic dysfunction (2) New onset a-fib: Code(s): I48.91 - Unspecified atrial fibrillation Status: Acute Assessment and Plan: see above. (3) Intractable nausea and vomiting: Code(s): R11.2 - Nausea with vomiting, unspecified Status: Acute Assessment and Plan: Patient has had intractable nausea vomiting for the past 6 weeks. The patient already has an outpatient EGD scheduled coming up this Tuesday. CT scan positive for gastritis and bladder distention Patient planned to have EGD in 2 days GI has been consulted. Patient has elevated QTC Phenergan 12.5 mg x1 given (4) Urinary tract infection: Qualifiers: Hematuria presence: without hematuria Urinary tract infection type: acute cystitis Qualified Code(s): N30.00 - Acute cystitis without hematuria Code(s): N39.0 - Urinary tract infection, site not specified Status: Acute Assessment and Plan: CT scanned compounded by urinary retention and possible urinary tract infection given the patient's report of recent dysuria. UA positive for nitrites Urine culture is pending Blood culture pending Patient has been started on empiric antibiotic therapy with Rocephin. (5) Hemolytic anemia: Code(s): D58.9 - Hereditary hemolytic anemia, unspecified Status: Acute Assessment and Plan: Monitor H&H (6) Acute on chronic anemia: Code(s): D64.9 - Anemia, unspecified Status: Acute Assessment and Plan: GI consulted. Monitor H&H Hemoccult ordered. Iron elevated at 235, TIBC low at 255, % saturation high at 92 (7) Lactic acidosis: Code(s): E87.20 - Acidosis, unspecified Status: Acute Assessment and Plan: The patient did have lactic acidosis likely due to volume depletion. Lactic acidosis resolved after IV fluid hydration. Will continue maintenance IV fluids. (8) Gastritis: Code(s): K29.70 - Gastritis, unspecified, without bleeding Status: Acute Assessment and Plan: Patient's nausea vomiting is likely multifactorial due to gastritis noted on CT scan Protonix IV b.i.d. (9) Urinary retention: Code(s): R33.9 - Retention of urine, unspecified Status: Acute Assessment and Plan: Will continue Archuleta catheter due to patient's urinary retention. Given her immediate relief in symptoms and recurrence of her urinary retention patient may benefit from continue Archuleta catheter until following up with Urogynecology. (10) Hypomagnesemia: Code(s): E83.42 - Hypomagnesemia Status: Acute Assessment and Plan: The patient's cardiac arrhythmia could have been exacerbated by electrolyte disturbances given patient has hypo magnesemia. Patient has received 4 g magnesium sulfate rider. I
[2022-04-19 09:17] LABS: Free T4 Free Thyroxine 1.92 ng/mL (0.78-2.19)
[2022-04-19] MEDS: METOPROLOL TARTRATE 25 MG TABLET PO ×2 (11:03→21:00)
[2022-04-19 11:39] LABS: Glucose Point of Care 176 mg/dl (65-105)
[2022-04-19] MEDS: oxyCODONE/ACETAMINOPHEN (*CRX) 5-325 MG TABLET 1 TABLET PO (11:54)
--- NOTE | 2022-04-19 12:48 | PM.CNCAR ---
Assessment and Plan Assessment and plan (1) Atrial fibrillation with rapid ventricular response: Code(s): I48.91 - Unspecified atrial fibrillation Status: Acute Plan Currently in sinus rhythm. Will stop Diltiazem and start PO Metoprolol. Echo ordered and pending. Patient has acute on chronic anemia from unknown etiology, therefore, anticoagulation has not been started. I agree with this. Consider anticoagulation in the future depending on anemia workup and if Hgb improves and stabilizes or no other contraindication to anticoagulation. History of Present Illness History of Present Illness Consult date/time: 04/19/22 12:48 Requesting physician: Beverly Castorena PA-C Consult reason: atrial fibrillation Reason For Visit: uti,urinary retention,intractable n/v hemolytic an Narrative: We are consulted for atrial fibrillation with RVR. This is a 77-year-old female with a history of Parkinson's disease associated with mild dementia, type 2 diabetes mellitus, GERD, uterine fibroids with uterine prolapse who presented to the ER with lower pelvic pain and nausea/vomiting. When patient was in the ER, she had some vomiting and then was noted to go into AFIB with RVR. Heart rate noted to be as high as 180s. She was given Adenosine, and they also tried vagal maneuvers. Given Cardizem and put on Dilitazem drip. Patient is currently in sinus rhythm. She denies any past history of atrial fibrillation or cardiac history. Review of Systems Review of Systems: All systems reviewed & are unremarkable except as noted in HPI and below (HPI) [facility] Past Medical History Medical History CVA (cerebral vascular accident) Dementia due to Parkinson's disease Depression with anxiety Essential hypertension Fibroid uterus GERD (gastroesophageal reflux disease) Hemolytic anemia History of ectopic Hyperlipidemia Kidney stones Type 2 diabetes mellitus Surgical History Surgical History History of cholecystectomy Status post cataract extraction and insertion of intraocular lens of left eye Family History Family History Mother Diabetes mellitus Sibling Diabetes mellitus Sibling Heart attack Father Homicide Victim of homicide Daughter Hypothyroidism Social History Social History Social History: The patient lives with her son and [id number] and their children. She has lived with them since 2021. She is a retired OBGYN nurse. She has 3 sons and 1 daughter. She is legally from her . She used to smoke marijuana on occasion but has not done so in many years. She used to drink alcohol on occasion in in moderation but has not done so in quite some time. She ambulates with a walker or cane and also has a wheelchair available at home. Code status: Full code [facility] power of collections attorney: Cuong Koroma (daughter in-law) Smoking packs per day: 1 Smoking cigarettes per day: 20.0 Years smoked: 20 Smoking pack-years: 20.00 Smoking status: Former smoker Tobacco type: cigarettes Alcohol intake: never Substance use: former Substance use type: marijuana Lack of Transportation: No Lack of Food: Never True Current Housing: I Have Housing Concerned About Future Housing: No Difficulty Paying Gas/Electric Bills: No Difficulty Paying for Meds: No Currently Unemployed: No Education: Associate Degree Difficulty w/ Childcare or Family Care: No Living arrangements: with family Occupation/Education: retired Gender identity (if verbalized by the patient): Female Sexual Orientation (if Verbalized by the Patient): Straight or Heterosexual Spiritual care concerns: No Meds Home Medications and Allergies Home Medications Medication Instructions
[2022-04-19] MEDS: INSULIN ASPART (*BKC) 100 UNITS/ML SUB-Q (16:35)
[2022-04-19 16:49] LABS: Glucose Point of Care 205 mg/dl (65-105)
[2022-04-19] MEDS: PROMETHAZINE HCL 25 MG/ML AMPUL 12.5 MG IV PUSH (17:03)
[2022-04-19 20:15] LABS: Glucose Point of Care 147 mg/dl (65-105)
[2022-04-19] MEDS: ATORVASTATIN 40 MG TABLET PO (21:00)
[2022-04-20] VITALS (22 sets, daily range): BP systolic 109–162; BP diastolic 44–78; PULSE 61–109; RESP 12–20; TEMP 36.2–36.9; O2SAT 97–100
[2022-04-20] MEDS: SODIUM CHLORIDE 0.9% IV 1,000 ML 100 ML IV CONT ×3 (02:52→19:01)
[2022-04-20 07:29] LABS: Glucose Point of Care 114 mg/dl (65-105)
[2022-04-20] MEDS: DICYCLOMINE HCL 10 MG CAPSULE 20 MG PO ×2 (09:10→18:59)
[2022-04-20] MEDS: METOPROLOL TARTRATE 25 MG TABLET PO ×2 (09:10→20:12)
[2022-04-20] MEDS: CARBIDOPA/LEVODOPA 25/100 MG TABLET 2 TABLET PO ×3 (09:10→18:58)
[2022-04-20] MEDS: PANTOPRAZOLE SODIUM IV 40 MG VIAL IV PUSH ×2 (09:11→18:59)
[2022-04-20] MEDS: ASPIRIN 81 MG ENTERIC TABLET PO (09:11)
[2022-04-20 09:15] LABS: Basophils Percent Auto 0.2 % (0.2-1.2); Eosinophils Absolute Auto 0.2 K/mm3 (0-0.3); Eosinophils Percent Auto 4.2 % (0-4.4); Immature Granulocyte Absolute 0.03 K/mm3 (0.00-0.031); Immature Granulocyte Percent A 0.6 % (0-0.5); Lymphocytes Percent Auto 29.8 % (18.3-44.2); Mean Corpuscular HGB Conc 30.6 g/dl (32-36); Mean Corpuscular Hemoglobin 30.8 pg (26-34); Mean Corpuscular Volume 100.5 fl (80-100); Mean Platelet Volume 10.7 fl (7.4-10.4); Monocytes Absolute Auto 0.5 K/mm3 (0.1-0.6); Monocytes Percent Auto 9.7 % (2.6-8.5); Neutrophils Absolute Auto 2.8 K/mm3 (1.3-6.7); Neutrophils Percent Auto 55.5 % (45.5-73.1); Platelet Count Result 190 k/mm3 (150-375); Red Blood Count 1.85 M/mm3 (4.2-5.4); Red Cell Distribution Width 13.1 % (11.5-14.5)
[2022-04-20 09:17] LABS: Hematocrit 18.6 % (37.0-47.0); Hemoglobin 5.7 g/dL (12.0-15.0)
[2022-04-20 09:31] LABS: Alanine Aminotransferase 10 U/L (6-35); Albumin Level 3.2 g/dL (3.5-5.1); Alkaline Phosphatase 68 U/L (38-126); Anion Gap 2 mmol/L (8-16); Aspartate Amino Transferase 23 U/L (14-36); Bilirubin,Total 0.6 mg/dL (0.2-1.3); Blood Urea Nitrogen 7 mg/dL (7-17); Calcium 7.7 mg/dL (8.4-10.2); Carbon Dioxide 25 mmol/L (22-30); Chloride 106 mmol/L (98-107); Estimated CRCL calculation 75 ml/min; Estimated Glomerular Filt Rate > 60; Glucose 216 mg/dL (65-110); Potassium 3.7 mmol/L (3.4-5.0); Sodium 133 mmol/L (137-145)
--- NOTE | 2022-04-20 11:10 | P.PNIM_ITS ---
Progress Note: A&P Assessment and Plan (1) Atrial fibrillation with rapid ventricular response: Code(s): I48.91 - Unspecified atrial fibrillation Status: Acute Assessment and Plan: The patient has new onset AFib RVR or at least resuming it is new onset is the patient was unaware of having palpitations or sensation of heart racing. * Echocardiogram ordered * She has responded well to Cardizem drip and Cardizem has been can continued. * Cardiology has been consulted and appreciate recommendations * Patient is not a candidate for active anticoagulation at this time given her acute on chronic anemia. * Her iron studies are consistent with anemia of chronic disease versus some component of hemolytic anemia given her elevated bilirubin and LDH. Patient's haptoglobin and Tate testing or still pending. * Vasc score is elevated and she would benefit from anticoagulation if hemoglobin were to stabilized. 04/19/22 * Patient's Cardizem stopped and patient put on p.o. metoprolol by Cardiology. * Echocardiogram revealed EF of 50-55%, cannot exclude wall motion abnormalities, grade 1 diastolic dysfunction (2) New onset a-fib: Code(s): I48.91 - Unspecified atrial fibrillation Status: Acute Assessment and Plan: see above. (3) Intractable nausea and vomiting: Code(s): R11.2 - Nausea with vomiting, unspecified Status: Acute Assessment and Plan: Patient has had intractable nausea vomiting for the past 6 weeks. The patient already has an outpatient EGD scheduled coming up this Tuesday. * CT scan positive for gastritis and bladder distention * Patient planned to have EGD in 2 days * GI has been consulted. * Patient has elevated QTC * Phenergan 12.5 mg x1 given 04/20/22 * Plan for EGD tomorrow (4) Acute on chronic anemia: Code(s): D64.9 - Anemia, unspecified Status: Acute Assessment and Plan: * GI consulted. * Monitor H&H * Hemoccult ordered. * Iron elevated at 235, TIBC low at 255, % saturation high at 92 04/20/22 * Hemoglobin hematocrit this morning 5.7/18.6 * Patient received 2 units of PRBCs * Recheck H&H 1 hour after infusion * Patient has received transfusion recently several weeks ago. GI following. (5) Hemolytic anemia: Code(s): D58.9 - Hereditary hemolytic anemia, unspecified Status: Acute Assessment and Plan: Monitor H&H (6) Urinary tract infection: Qualifiers: Hematuria presence: without hematuria Urinary tract infection type: acute cystitis Qualified Code(s): N30.00 - Acute cystitis without hematuria Code(s): N39.0 - Urinary tract infection, site not specified Status: Acute Assessment and Plan: CT scanned compounded by urinary retention and possible urinary tract infection given the patient's report of recent dysuria. * UA positive for nitrites * Urine culture negative * Blood culture no growth to date * Rocephin discontinued 04/20/22 (7) Lactic acidosis: Code(s): E87.20 - Acidosis, unspecified Status: Acute Assessment and Plan: The patient did have lactic acidosis likely due to volume depletion. Lactic acidosis resolved after IV fluid hydration. Will continue maintenance IV fluids. (8) Gastritis: Code(s): K29.70 - Gastritis, unspecified, without bleeding Status: Acute Assessment and Plan: Patient's nausea vomiting is likely multifactorial due to gastritis noted on CT scan * Pro
--- NOTE | 2022-04-20 11:10 | PM.IMPN ---
Progress Note: A&P Assessment and Plan (1) Atrial fibrillation with rapid ventricular response: Code(s): I48.91 - Unspecified atrial fibrillation Status: Acute Assessment and Plan: The patient has new onset AFib RVR or at least resuming it is new onset is the patient was unaware of having palpitations or sensation of heart racing. Echocardiogram ordered She has responded well to Cardizem drip and Cardizem has been can continued. Cardiology has been consulted and appreciate recommendations Patient is not a candidate for active anticoagulation at this time given her acute on chronic anemia. Her iron studies are consistent with anemia of chronic disease versus some component of hemolytic anemia given her elevated bilirubin and LDH. Patient's haptoglobin and Tate testing or still pending. Vasc score is elevated and she would benefit from anticoagulation if hemoglobin were to stabilized. 04/19/22 Patient's Cardizem stopped and patient put on p.o. metoprolol by Cardiology. Echocardiogram revealed EF of 50-55%, cannot exclude wall motion abnormalities, grade 1 diastolic dysfunction (2) New onset a-fib: Code(s): I48.91 - Unspecified atrial fibrillation Status: Acute Assessment and Plan: see above. (3) Intractable nausea and vomiting: Code(s): R11.2 - Nausea with vomiting, unspecified Status: Acute Assessment and Plan: Patient has had intractable nausea vomiting for the past 6 weeks. The patient already has an outpatient EGD scheduled coming up this Tuesday. CT scan positive for gastritis and bladder distention Patient planned to have EGD in 2 days GI has been consulted. Patient has elevated QTC Phenergan 12.5 mg x1 given 04/20/22 Plan for EGD tomorrow (4) Acute on chronic anemia: Code(s): D64.9 - Anemia, unspecified Status: Acute Assessment and Plan: GI consulted. Monitor H&H Hemoccult ordered. Iron elevated at 235, TIBC low at 255, % saturation high at 92 04/20/22 Hemoglobin hematocrit this morning 5.7/18.6 Patient received 2 units of PRBCs Recheck H&H 1 hour after infusion Patient has received transfusion recently several weeks ago. GI following. (5) Hemolytic anemia: Code(s): D58.9 - Hereditary hemolytic anemia, unspecified Status: Acute Assessment and Plan: Monitor H&H (6) Urinary tract infection: Qualifiers: Hematuria presence: without hematuria Urinary tract infection type: acute cystitis Qualified Code(s): N30.00 - Acute cystitis without hematuria Code(s): N39.0 - Urinary tract infection, site not specified Status: Acute Assessment and Plan: CT scanned compounded by urinary retention and possible urinary tract infection given the patient's report of recent dysuria. UA positive for nitrites Urine culture negative Blood culture no growth to date Rocephin discontinued 04/20/22 (7) Lactic acidosis: Code(s): E87.20 - Acidosis, unspecified Status: Acute Assessment and Plan: The patient did have lactic acidosis likely due to volume depletion. Lactic acidosis resolved after IV fluid hydration. Will continue maintenance IV fluids. (8) Gastritis: Code(s): K29.70 - Gastritis, unspecified, without bleeding Status: Acute Assessment and Plan: Patient's nausea vomiting is likely multifactorial due to gastritis noted on CT scan Protonix IV b.i.d. (9) Urinary retention: Code(s): R33.9 - Retention of urine, unspecified Status: Acute Assessment and Plan: Will continue Archuleta catheter due to patient's urinary retention. Given her immediate relief in symptoms and recurrence of her urinary retention patient may benefit from continue Archuleta catheter until following up with Urogynecology. (10) Hypomagnesemia: Code(s): E83.42 - Hypomagnesemia Status: Acute
[2022-04-20] MEDS: SODIUM CHLORIDE 0.9% IV 250 ML 30 ML IV CONT (11:45)
[2022-04-20 11:50] LABS: Glucose Point of Care 288 mg/dl (65-105)
--- NOTE | 2022-04-20 13:45 | WPDGICN ---
Assessment and Plan Assessment and plan (1) Intractable nausea and vomiting: Code(s): R11.2 - Nausea with vomiting, unspecified Status: Acute Assessment and Plan: Patient with 6 week history of nausea vomiting. The etiology is unclear. Recent CT scan imaging raised the question of gastritis. Plan to proceed with EGD during this admission will anticipate proceeding with this tomorrow if possible. Will maintain patient on pantoprazole in the interim. This has already been started. (2) Urinary retention: Code(s): R33.9 - Retention of urine, unspecified Status: Acute (3) New onset a-fib: Code(s): I48.91 - Unspecified atrial fibrillation Status: Acute (4) Hemolytic anemia: Code(s): D58.9 - Hereditary hemolytic anemia, unspecified Status: Acute Assessment and Plan: Likely contributes to her current anemia. GI blood loss appears unlikely stool Hemoccult will be obtained when possible. (5) Gastritis: Code(s): K29.70 - Gastritis, unspecified, without bleeding Status: Acute Assessment and Plan: Recent CT scan showed thickening of gastric wall suggesting possible gastritis. Patient currently maintained on pantoprazole. Will plan EGD to evaluate this as well as her nausea vomiting. GI Consult Note Consult date/time: 04/20/22 13:45 Reason for consult: Protracted nausea and vomiting. HPI: Leonard Nunn is a 77 year old female I am asked to see at the request of the hospitalist service because of a 6 week history of nausea vomiting. Patient has a history of Parkinson's disease and associated dementia. She has been treated for diabetes, GE reflux uterine fibroids and urinary retention. Patient admitted to the hospital with lower pelvic pain. Patient was found to have a urinary tract infection. Is felt the uterine fibroids may contribute to this. Patient is seen in conjunction with her daughter who gives much of the history. Patient has had nausea vomiting for at least the last 6 weeks. She has been followed by hands and dial inspector [place]. Because of ongoing symptoms in EGD was anticipated this week. Patient is unable to give a coherent history. Her recent history is significant for a CT scan which revealed thickening of the gastric wall raising the question of gastritis. As stated patient has a history of Parkinson's disease and dementia. She may also have a history of hereditary hemolytic anemia which is currently felt to be stable. Daughter states that she is receiving transfusion during this admission but received 1 recently several weeks ago. Apparently she has atrial fibrillation. there has been no history of bleeding. No history of bruising no blood in her urine nor obvious blood in her stool. Stool Hemoccult is pending at time this dictation. Patient's family history is noncontributory. Patient does have a distant history of colon polyps. Currently having follow-up colonoscopies on a routine basis in [place]. Review of Systems Review of Systems: ROS unobtainable: Yes unobtainable due to mental status PMFSH Past Medical History Medical History CVA (cerebral vascular accident) Dementia due to Parkinson's disease Depression with anxiety Essential hypertension Fibroid uterus GERD (gastroesophageal reflux disease) Hemolytic anemia History of ectopic Hyperlipidemia Kidney stones Type 2 diabetes mellitus Surgical History Surgical History History of cholecystectomy Status post cataract extraction and insertion of intraocular lens of left eye Family History Family History Mother Diabetes mellitus Sibling Diabetes mellitus Sibling Heart attack Father Homicide Victim of homicide Daughter Hypothyroidism Social History Social History (Re
[2022-04-20 16:45] LABS: Glucose Point of Care 327 mg/dl (65-105)
[2022-04-20 19:24] LABS: IFOB Positive Control Positive; Immunochemical Fecal Occult Bl Negative (N)
[2022-04-20] MEDS: ATORVASTATIN 40 MG TABLET PO (20:12)
[2022-04-20 20:27] LABS: Hematocrit 32.2 % (37.0-47.0); Hemoglobin 10.3 g/dL (12.0-15.0)
[2022-04-20 20:42] LABS: Glucose Point of Care 260 mg/dl (65-105)
[2022-04-21] VITALS (20 sets, daily range): BP systolic 139–176; BP diastolic 57–102; PULSE 70–101; RESP 14–70; TEMP 36.2–36.9; O2SAT 16–100
[2022-04-21] MEDS: oxyCODONE/ACETAMINOPHEN (*CRX) 5-325 MG TABLET 1 TABLET PO (03:14)
[2022-04-21] MEDS: SODIUM CHLORIDE 0.9% IV 1,000 ML 100 ML IV CONT ×2 (04:57→16:18)
[2022-04-21 05:31] LABS: Hematocrit 29.5 % (37.0-47.0); Hemoglobin 9.7 g/dL (12.0-15.0); Mean Corpuscular HGB Conc 32.9 g/dl (32-36); Mean Corpuscular Volume 91.3 fl (80-100); Mean Platelet Volume 11.2 fl (7.4-10.4); Platelet Count Result 195 k/mm3 (150-375); Red Blood Count 3.23 M/mm3 (4.2-5.4); Red Cell Distribution Width 15.1 % (11.5-14.5); White Blood Count 7.9 K/mm3 (4.5-10.0)
[2022-04-21 05:53] LABS: Alanine Aminotransferase 9 U/L (6-35); Albumin Level 3.4 g/dL (3.5-5.1); Alkaline Phosphatase 76 U/L (38-126); Anion Gap 4 mmol/L (8-16); Aspartate Amino Transferase 19 U/L (14-36); Bilirubin,Total 0.5 mg/dL (0.2-1.3); Blood Urea Nitrogen 7 mg/dL (7-17); Calcium 7.9 mg/dL (8.4-10.2); Carbon Dioxide 26 mmol/L (22-30); Chloride 103 mmol/L (98-107); Estimated CRCL calculation 64 ml/min; Estimated Glomerular Filt Rate > 60; Glucose 164 mg/dL (65-110); Magnesium 1.3 mg/dL (1.6-2.3); Potassium 3.6 mmol/L (3.4-5.0); Sodium 133 mmol/L (137-145)
[2022-04-21 08:15] LABS: Glucose Point of Care 161 mg/dl (65-105)
[2022-04-21] MEDS: CARBIDOPA/LEVODOPA 25/100 MG TABLET 2 TABLET PO ×3 (09:11→17:52)
[2022-04-21] MEDS: DICYCLOMINE HCL 10 MG CAPSULE 20 MG PO ×2 (09:11→17:52)
[2022-04-21] MEDS: ASPIRIN 81 MG ENTERIC TABLET PO (09:11)
[2022-04-21] MEDS: METOPROLOL TARTRATE 25 MG TABLET PO ×2 (09:11→20:47)
[2022-04-21] MEDS: PANTOPRAZOLE SODIUM IV 40 MG VIAL IV PUSH (09:12)
--- NOTE | 2022-04-21 10:46 | P.PNIM_ITS ---
Progress Note: A&P Assessment and Plan (1) Atrial fibrillation with rapid ventricular response: Code(s): I48.91 - Unspecified atrial fibrillation Status: Acute Assessment and Plan: The patient has new onset AFib RVR or at least resuming it is new onset is the patient was unaware of having palpitations or sensation of heart racing. * Echocardiogram revealed EF of 50-55%, cannot exclude wall motion abnormali ties, grade 1 diastolic dysfunction * she was initially treated with Cardizem drip and PO Cardizem continued. * Cardiology has been consulted and appreciate recommendations * Patient transitioned to oral metoprolol 25 mg Q12 hours * Patient is not a candidate for active anticoagulation at this time given her acute on chronic anemia. * Her iron studies are consistent with anemia of chronic disease versus some component of hemolytic anemia given her elevated bilirubin and LDH. Patient's haptoglobin and Henna testing or still pending. * Vasc score is elevated and she would benefit from anticoagulation if hemoglobin were to stabilized. * Converted to NSR 04/19/22 and remains in SR on telemetry. (2) New onset a-fib: Code(s): I48.91 - Unspecified atrial fibrillation Status: Acute Assessment and Plan: see above. (3) Intractable nausea and vomiting: Code(s): R11.2 - Nausea with vomiting, unspecified Status: Acute Assessment and Plan: Patient has had intractable nausea vomiting for the past 6 weeks. The patient already has an outpatient EGD scheduled coming up this Tuesday. * CT scan positive for gastritis and bladder distention * Patient planned to have EGD in 2 days outpatient * GI has been consulted. * Patient has elevated QTC so Zofran avoided. Phenergan 12.5 mg x1 given * EGD 04/21 without abnormality or acute bleeding. * Continued on Bentyl and PPI PO (4) Acute on chronic anemia: Code(s): D64.9 - Anemia, unspecified Status: Acute Assessment and Plan: H/H 7.9/25.8 on admission. MCV, MCH and MCHC with normal limits. H/O hereditary hemolytic anemia per family, she was referred to [facility] Hematology several years ago, but not seen. She had a blood transfusion approximately 5 years ago per family. * Haptoglobin and henna pending. LDH and Tbili elevated on admission. * GI consulted and EGD on 04/21 without acute bleeding. * FOBT negative. * Hgb dropped to 5.7 and she received 2 units PRBC on 04/20 * Iron elevated at 235, TIBC low at 255, 92% saturation * Repeat Hgb 9.7 * Check B12 and folate. * consult Oncology/Hematology (5) Hemolytic anemia: Code(s): D58.9 - Hereditary hemolytic anemia, unspecified Status: Acute Assessment and Plan: As above. (6) Urinary tract infection: Qualifiers: Hematuria presence: without hematuria Urinary tract infection type: acute cystitis Qualified Code(s): N30.00 - Acute cystitis without hematuria Code(s): N39.0 - Urinary tract infection, site not specified Status: Acute Assessment and Plan: CT scanned compounded by urinary retention and possible urinary tract infection given the patient's report of recent dysuria. * UA positive for nitrites * Urine culture negative * Blood culture no growth to date * Rocephin discontinued 04/20/22 (7) Lactic acidosis: Code(s): E87.20 - Acidosis, unspecified Status: Acute Assessment and Plan: The patient did have lactic acidosis likely due to volume depletion. * Lactic acidosis resolved after IV fluid hydration. Given urine culture is negative, likely secondary t
--- NOTE | 2022-04-21 10:46 | PM.IMPN ---
Progress Note: A&P Assessment and Plan (1) Atrial fibrillation with rapid ventricular response: Code(s): I48.91 - Unspecified atrial fibrillation Status: Acute Assessment and Plan: The patient has new onset AFib RVR or at least resuming it is new onset is the patient was unaware of having palpitations or sensation of heart racing. Echocardiogram revealed EF of 50-55%, cannot exclude wall motion abnormalities, grade 1 diastolic dysfunction she was initially treated with Cardizem drip and PO Cardizem continued. Cardiology has been consulted and appreciate recommendations Patient transitioned to oral metoprolol 25 mg Q12 hours Patient is not a candidate for active anticoagulation at this time given her acute on chronic anemia. Her iron studies are consistent with anemia of chronic disease versus some component of hemolytic anemia given her elevated bilirubin and LDH. Patient's haptoglobin and Henna testing or still pending. Vasc score is elevated and she would benefit from anticoagulation if hemoglobin were to stabilized. Converted to NSR 04/19/22 and remains in SR on telemetry. (2) New onset a-fib: Code(s): I48.91 - Unspecified atrial fibrillation Status: Acute Assessment and Plan: see above. (3) Intractable nausea and vomiting: Code(s): R11.2 - Nausea with vomiting, unspecified Status: Acute Assessment and Plan: Patient has had intractable nausea vomiting for the past 6 weeks. The patient already has an outpatient EGD scheduled coming up this Tuesday. CT scan positive for gastritis and bladder distention Patient planned to have EGD in 2 days outpatient GI has been consulted. Patient has elevated QTC so Zofran avoided. Phenergan 12.5 mg x1 given EGD 04/21 without abnormality or acute bleeding. Continued on Bentyl and PPI PO (4) Acute on chronic anemia: Code(s): D64.9 - Anemia, unspecified Status: Acute Assessment and Plan: H/H 7.9/25.8 on admission. MCV, MCH and MCHC with normal limits. H/O hereditary hemolytic anemia per family, she was referred to [facility] Hematology several years ago, but not seen. She had a blood transfusion approximately 5 years ago per family. Haptoglobin and henna pending. LDH and Tbili elevated on admission. GI consulted and EGD on 04/21 without acute bleeding. FOBT negative. Hgb dropped to 5.7 and she received 2 units PRBC on 04/20 Iron elevated at 235, TIBC low at 255, 92% saturation Repeat Hgb 9.7 Check B12 and folate. consult Oncology/Hematology (5) Hemolytic anemia: Code(s): D58.9 - Hereditary hemolytic anemia, unspecified Status: Acute Assessment and Plan: As above. (6) Urinary tract infection: Qualifiers: Hematuria presence: without hematuria Urinary tract infection type: acute cystitis Qualified Code(s): N30.00 - Acute cystitis without hematuria Code(s): N39.0 - Urinary tract infection, site not specified Status: Acute Assessment and Plan: CT scanned compounded by urinary retention and possible urinary tract infection given the patient's report of recent dysuria. UA positive for nitrites Urine culture negative Blood culture no growth to date Rocephin discontinued 04/20/22 (7) Lactic acidosis: Code(s): E87.20 - Acidosis, unspecified Status: Acute Assessment and Plan: The patient did have lactic acidosis likely due to volume depletion. Lactic acidosis resolved after IV fluid hydration. Given urine culture is negative, likely secondary to hemolytic anemia (8) Gastritis: Qualifiers: Gastritis type: unspecified gastritis Chronicity: acute Gastritis bleeding: without bleeding Qualified Code(s): K29.00 - Acute gastritis without bleeding Code(s): K29.70 - Gastritis, unspecified, without bleeding Status: Acute Assessment and Plan: Patient's nausea vomiting is likely multifactorial due to
[2022-04-21 11:11] LABS: Glucose Point of Care 137 mg/dl (65-105)
[2022-04-21] MEDS: LACTATED RINGERS 1,000 ML 150 ML IV CONT (11:13)
--- NOTE | 2022-04-21 11:27 | WPDANESEPPF ---
Anes - Initial Pre Proc Eval Procedure: Operation Date: 04/21/22 12:00 Proposed Procedures p Esophagogastroduodenoscopy - Jose R Roldan MD Date/Time: 04/21/22 11:27 Surgeon: Sydnee Fernando DO Pre Op Diagnosis: uti,urinary retention,intractable n/v hemolytic an Patient Data Age: 77 Gender: F Height: 1.75 m Weight: 58.6 kg Last Vital Signs Temp 98.2 F 04/21/22 11:09 Pulse 86 04/21/22 11:09 Resp 20 04/21/22 11:09 BP 159/74 H 04/21/22 11:09 Pulse Ox 100 04/21/22 11:09 O2 Del Method Room Air 04/21/22 11:09 Allergies Allergy/AdvReac Type Severity Reaction Status Date / Time Penicillins Allergy Intermediate Swelling Verified 04/21/22 11:08 Home Medications Medication Instructions Recorded Confirmed Type atorvastatin 40 mg tablet 40 mg PO HS 03/26/22 04/18/22 History dicyclomine 20 mg tablet 20 mg PO BID 03/26/22 04/18/22 History glimepiride 2 mg tablet 2 mg PO QAM 03/26/22 04/18/22 History metformin 1,000 mg tablet 1,000 mg PO DAILY 03/26/22 04/18/22 History oxycodone-acetaminophen 5 mg-325 1 tablet PO Q6H PRN pain #20 tabs 03/26/22 04/18/22 Rx mg tablet (Percocet) carbidopa 25 mg-levodopa 100 mg 1 tablet PO TID 04/18/22 04/19/22 History tablet pantoprazole 40 mg tablet,delayed 40 mg PO DAILY 04/18/22 04/18/22 History release aspirin 81 mg tablet 81 mg PO DAILY 04/19/22 04/19/22 History Laboratory Tests 04/18/22 04/20/22 04/20/22 19:57 11:35 16:11 WBC RBC Hgb Hct MCV MCH MCHC RDW Plt Count MPV Sodium Potassium Chloride Carbon Dioxide Anion Gap BUN Creatinine Estim Creat Clear Calc Estimated GFR Glucose POC Capillary Glucose 288 mg/dl H mg/dl 327 mg/dl H mg/dl (65-105) (65-105) Calcium Magnesium Total Bilirubin AST ALT Alkaline Phosphatase Total Protein Albumin Stl Occult Blood (IFOB) Blood Type O Positive Antibody Screen Negative Crossmatch See Detail 04/20/22 04/20/22 04/20/22 19:05 19:56 20:13 WBC RBC Hgb 10.3 g/dL L D g/dL (12.0-15.0) Hct 32.2 % L % (37.0-47.0) MCV MCH MCHC RDW Plt Count MPV Sodium Potassium Chloride Carbon Dioxide Anion Gap BUN Creatinine Estim Creat Clear Calc Estimated GFR Glucose POC Capillary Glucose 260 mg/dl H mg/dl (65-105) Calcium Magnesium Total Bilirubin AST ALT Alkaline Phosphatase Total Protein Albumin Stl Occult Blood (IFOB) Negative (N) Blood Type Antibody Screen Crossmatch 04/21/22 04/21/22 04/21/22 04:52 04:52 07:45 WBC 7.9 K/mm3 K/mm3 (4.5-10.0) RBC 3.23 M/mm3 L M/mm3 (4.2-5.4) Hgb 9.7 g/dL L g/dL (12.0-15.0) Hct 29.5 % L % (37.0-47.0) MCV 91.3 fl D fl (80-100) MCH 30.0 pg pg (26-34) MCHC 32.9 g/dl g/dl (32-36) RDW 15.1 % H % (11.5-14.5) Plt Count 195 k/mm3 k/mm3 (150-375) MPV 11.2 fl H fl (7.4-10.4) Sodium 133 mmol/L L mmol/L (137-145) Potassium 3.6 mmol/L mmol/L (3.4-5.0) Chloride 103 mmol/L mmol/L (98-107) Carbon Dioxide 26 mmol/L mmol/L (22-30) Anion Gap 4 mmol/L L mmol/L (8-16) BUN 7 mg/dL mg/dL (7-17) Creat
--- NOTE | 2022-04-21 11:55 | PM.HPGS ---
History of Present Illness History of Present Illness Consent: Risks, benefits, and alternatives have been discussed and questions answered. Patient agrees to proceed with procedure. Chief complaint: uti,urinary retention,intractable n/v hemolytic an Narrative: Leonard Nunn is a 77 year old female [facility] Past Medical History Medical History (Updated 04/21/22 @ 10:56 by Cheryl Garcia APRN) CVA (cerebral vascular accident) Dementia due to Parkinson's disease Depression with anxiety Essential hypertension Fibroid uterus GERD (gastroesophageal reflux disease) Hemolytic anemia History of ectopic Hyperlipidemia Kidney stones Type 2 diabetes mellitus Surgical History Surgical History History of cholecystectomy Status post cataract extraction and insertion of intraocular lens of left eye Family History Family History Mother Diabetes mellitus Sibling Diabetes mellitus Sibling Heart attack Father Homicide Victim of homicide Daughter Hypothyroidism Social History Social History Social History: The patient lives with her son and [id number] and their children. She has lived with them since 2021. She is a retired OBGYN nurse. She has 3 sons and 1 daughter. She is legally from her . She used to smoke marijuana on occasion but has not done so in many years. She used to drink alcohol on occasion in in moderation but has not done so in quite some time. She ambulates with a walker or cane and also has a wheelchair available at home. Code status: Full code [facility] power of tuber helper: Cuong Ga (daughter in-law) Smoking packs per day: 1 Smoking cigarettes per day: 20.0 Years smoked: 20 Smoking pack-years: 20.00 Smoking status: Former smoker Tobacco type: cigarettes Alcohol intake: never Substance use: former Substance use type: marijuana Lack of Transportation: No Lack of Food: Never True Current Housing: I Have Housing Concerned About Future Housing: No Difficulty Paying Gas/Electric Bills: No Difficulty Paying for Meds: No Currently Unemployed: No Education: Associate Degree Difficulty w/ Childcare or Family Care: No Living arrangements: with family Occupation/Education: retired Gender identity (if verbalized by the patient): Female Sexual Orientation (if Verbalized by the Patient): Straight or Heterosexual Spiritual care concerns: No Meds Home Medications and Allergies Home Medications Medication Instructions Recorded Confirmed Type atorvastatin 40 mg tablet 40 mg PO HS 03/26/22 04/18/22 History dicyclomine 20 mg tablet 20 mg PO BID 03/26/22 04/18/22 History glimepiride 2 mg tablet 2 mg PO QAM 03/26/22 04/18/22 History metformin 1,000 mg tablet 1,000 mg PO DAILY 03/26/22 04/18/22 History oxycodone-acetaminophen 5 mg-325 1 tablet PO Q6H PRN pain #20 tabs 03/26/22 04/18/22 Rx mg tablet (Percocet) carbidopa 25 mg-levodopa 100 mg 1 tablet PO TID 04/18/22 04/19/22 History tablet pantoprazole 40 mg tablet,delayed 40 mg PO DAILY 04/18/22 04/18/22 History release aspirin 81 mg tablet 81 mg PO DAILY 04/19/22 04/19/22 History Allergies Allergy/AdvReac Type Severity Reaction Status Date / Time Penicillins Allergy Intermediate Swelling Verified 04/21/22 11:08 Vital Signs Vital Signs - 24 hr 04/20/22 11:58 04/20/22 12:38 04/20/22 12:35 Temperature 98.1 F 98.5 F 98.5 F Pulse Rate 92 61 91 Respiratory Rate 16 18 18 Blood Pressure 109/44 L 121/52 L 121/52 L Pulse Oximetry 100 97 98 Oxygen Delivery 04/20/22 12:50 04/20/22 15:00 04/20/22 12:00 Temperature 98.2 F 98.1 F Pulse Rate 92 89 99 Respiratory Rate 18 12 Blood Pressure 114/45 L 116/50 L Pulse Oximetry 100 100 Oxygen Delivery 04/20/22 14:00 04/20/22 16:0
[2022-04-21 12:21] LABS: Glucose Point of Care 155 mg/dl (65-105)
[2022-04-21] MEDS: MAGNESIUM SULFATE 3GM/D5W100ML 3 GM/100 ML BAG IVPB (13:00)
[2022-04-21 13:09] LABS: Glucose Point of Care 133 mg/dl (65-105)
[2022-04-21 16:40] LABS: Glucose Point of Care 263 mg/dl (65-105)
[2022-04-21] MEDS: ACETAMINOPHEN 325 MG TABLET 650 MG PO (17:49)
[2022-04-21] MEDS: POTASSIUM CHLORIDE 20 MEQ TABLET 40 MEQ PO (17:51)
[2022-04-21] MEDS: INSULIN ASPART (*BKC) 100 UNITS/ML SUB-Q (17:53)
--- NOTE | 2022-04-21 18:49 | PDONCCN ---
HPI - Date of Consult Date/Time: 04/21/22 18:49 Requesting Physician: Sydnee Fernando DO Primary Care Provider: Jose Pierce, - Consult Narrative Reason for consult: Normocytic anemia Narrative: Leonard Nunn is a 77 year old female with history of Parkinson disease and dementia, type 2 diabetes card and uterine fibroid came into the hospital with nausea vomiting and pelvic pain. She was also experiencing some lower abdominal discomfort and urinary frequency. She was also complaining of dysuria. Patient has lost 20 lb weight unintentionally due to poor appetite. She denies any previous history of malignancy. Labs showed hemoglobin of 5.7. Patient received 1 unit of packed red blood cell. Other labs showed abnormally elevated iron level likely drawn after the blood transfusion and normal creatinine. LDH was slightly elevated. Reticulocyte count percentage was slightly elevated at and total bilirubin was normal. The direct Tate test was negative. Kidney function was normal. Patient had EGD done today that came back normal. Hemoccult stool was negative. According to patient daughter her last colonoscopy was more than 5 years ago. She remains quite tired and fatigued. Review of Systems - Review of Systems All systems reviewed & are unremarkable except as noted in HPI and [facility] Medical History: Medical History (Last Updated 04/21/22 @ 10:56 by Cheryl Garcia APRN) CVA (cerebral vascular accident) Dementia due to Parkinson's disease Depression with anxiety Essential hypertension Fibroid uterus GERD (gastroesophageal reflux disease) Hemolytic anemia History of ectopic Hyperlipidemia Kidney stones Type 2 diabetes mellitus Surgical History: Surgical History (Last Reviewed 04/19/22 @ 12:54 by Declan Mcduffie MD) History of cholecystectomy Status post cataract extraction and insertion of intraocular lens of left eye Family History: Family History (Last Reviewed 04/19/22 @ 12:54 by Declan Mcduffie MD) Mother Diabetes mellitus Sibling Diabetes mellitus Sibling Heart attack Father Homicide Victim of homicide Daughter Hypothyroidism - Social History Social History: Social History (Last Reviewed 04/19/22 @ 12:54 by Declan Mcduffie MD) Gender Identity: Gender identity (if verbalized by the patient): Female Sexual Orientation: Sexual Orientation (if Verbalized by the Patient): Straight or Heterosexual Alcohol Use: Alcohol intake: never Substance Use: Substance use: former Substance use type: marijuana Others: Spiritual care concerns: No Living Arrangements: Living arrangements: with family Oppucation/Education: Occupation/Education: retired Smoking Status: Smoking status: Former smoker Tobacco type: cigarettes Approximate Smoking End Date: 2012 Smoking Pack-years: Smoking packs per day: 1 Smoking cigarettes per day: 20.0 Years smoked: 20 Smoking pack-years: 20.00 Social Determinants of Health: Has the Lack of Transportation Kept You From Medical Appointments or From Getting Medications?: No Within the Past 12 Months, Were You Worried Whether Your Food Would Run Out Before You Got Money to Buy More?: Never True What is Your Housing Situation Today?: I Have Housing Are You Worried That in the Next 2 Months, You May Not Have Your Own Housing to Live In?: No Do You Have Trouble Paying Your Heating Or Electricity Bill?: No Do You Have Trouble Paying For Medicines?: No Are You Currently Unemployed and Looking for Work?: No Highest Level of Education Completed: Associate Degree Do You Have Trouble With Childcare or the Care of a Family Member?: No Exam - Vital Signs Vital Signs - 24 hr 04/20/22 20:12 04/20/22 20:00 04/20/22 20:00 Temperature 36.8 C Pulse Rate 96 98 Respiratory Rate 16 Blood Pressure 145/72 H Pulse Oxi
[2022-04-21 19:53] LABS: Glucose Point of Care 279 mg/dl (65-105)
[2022-04-21] MEDS: ATORVASTATIN 40 MG TABLET PO (20:46)
[2022-04-22] VITALS (13 sets, daily range): BP systolic 104–153; BP diastolic 62–89; PULSE 81–100; RESP 16–18; TEMP 36.4–37.6; O2SAT 97–100
[2022-04-22 08:10] LABS: Glucose Point of Care 199 mg/dl (65-105)
[2022-04-22] MEDS: CARBIDOPA/LEVODOPA 25/100 MG TABLET 2 TABLET PO ×3 (08:34→16:20)
[2022-04-22] MEDS: DICYCLOMINE HCL 10 MG CAPSULE 20 MG PO ×2 (08:35→16:20)
[2022-04-22] MEDS: PANTOPRAZOLE 40 MG TABLET PO (08:35)
[2022-04-22] MEDS: ASPIRIN 81 MG ENTERIC TABLET PO (08:35)
[2022-04-22] MEDS: METOPROLOL TARTRATE 25 MG TABLET PO ×2 (08:35→20:27)
[2022-04-22] MEDS: GLIMEPIRIDE 2 MG TABLET PO (08:35)
[2022-04-22] MEDS: metFORMIN HCL 500 MG TABLET 1000 MG PO (08:35)
--- NOTE | 2022-04-22 09:02 | P.PNIM_ITS ---
Progress Note: A&P Assessment and Plan (1) Atrial fibrillation with rapid ventricular response: Code(s): I48.91 - Unspecified atrial fibrillation Status: Acute Assessment and Plan: The patient has new onset AFib RVR or at least resuming it is new onset is the patient was unaware of having palpitations or sensation of heart racing. * Echocardiogram revealed EF of 50-55%, cannot exclude wall motion abnormali ties, grade 1 diastolic dysfunction * she was initially treated with Cardizem drip and PO Cardizem continued. * Cardiology has been consulted and appreciate recommendations * Patient transitioned to oral metoprolol 25 mg Q12 hours * Patient is not a candidate for active anticoagulation at this time given her acute on chronic anemia. * Her iron studies are consistent with anemia of chronic disease versus some component of hemolytic anemia given her elevated bilirubin and LDH. Patient's haptoglobin and Henna testing or still pending. * Vasc score is elevated and she would benefit from anticoagulation if hemoglobin were to stabilized. * Converted to NSR 04/19/22 and remains in SR on telemetry. Continue current management (2) New onset a-fib: Code(s): I48.91 - Unspecified atrial fibrillation Status: Acute Assessment and Plan: see above. (3) Intractable nausea and vomiting: Code(s): R11.2 - Nausea with vomiting, unspecified Status: Acute Assessment and Plan: Patient has had intractable nausea vomiting for the past 6 weeks. The patient already has an outpatient EGD scheduled coming up this Tuesday. * CT scan positive for gastritis and bladder distention * Patient planned to have EGD in 2 days outpatient * GI has been consulted. * Patient has elevated QTC so Zofran avoided. Phenergan 12.5 mg x1 given * EGD 04/21 without abnormality or acute bleeding. * Continued on Bentyl and PPI PO * Stable. (4) Acute on chronic anemia: Code(s): D64.9 - Anemia, unspecified Status: Acute Assessment and Plan: H/H 7.9/25.8 on admission. MCV, MCH and MCHC with normal limits. H/O hereditary hemolytic anemia per family, she was referred to [facility] Hematology several years ago, but not seen. She had a blood transfusion approximately 5 years ago per family. * Haptoglobin pending and direct henna negative. LDH and Tbili elevated on admission. * GI consulted and EGD on 04/21 without acute bleeding. * FOBT negative. * Hgb dropped to 5.7 and she received 2 units PRBC on 04/20 * Iron elevated at 235, TIBC low at 255, 92% saturation * Repeat Hgb 9.7 * Check B12 and folate. * consult Oncology/Hematology * Bone marrow biopsy tomorrow, NPO after midnight (5) Hemolytic anemia: Code(s): D58.9 - Hereditary hemolytic anemia, unspecified Status: Acute Assessment and Plan: As above. (6) Urinary tract infection: Qualifiers: Hematuria presence: without hematuria Urinary tract infection type: acute cystitis Qualified Code(s): N30.00 - Acute cystitis without hematuria Code(s): N39.0 - Urinary tract infection, site not specified Status: Resolved Assessment and Plan: CT scanned compounded by urinary retention and possible urinary tract infection given the patient's report of recent dysuria. * UA positive for nitrites * Urine culture negative * Blood culture no growth to date * Rocephin discontinued 04/20/22 (7) Lactic acidosis: Code(s): E87.20 - Acidosis, unspecified Status: Acute Assessment and Plan: The patient did have lactic acidosis likely due to volume
--- NOTE | 2022-04-22 09:02 | PM.IMPN ---
Progress Note: A&P Assessment and Plan (1) Atrial fibrillation with rapid ventricular response: Code(s): I48.91 - Unspecified atrial fibrillation Status: Acute Assessment and Plan: The patient has new onset AFib RVR or at least resuming it is new onset is the patient was unaware of having palpitations or sensation of heart racing. Echocardiogram revealed EF of 50-55%, cannot exclude wall motion abnormalities, grade 1 diastolic dysfunction she was initially treated with Cardizem drip and PO Cardizem continued. Cardiology has been consulted and appreciate recommendations Patient transitioned to oral metoprolol 25 mg Q12 hours Patient is not a candidate for active anticoagulation at this time given her acute on chronic anemia. Her iron studies are consistent with anemia of chronic disease versus some component of hemolytic anemia given her elevated bilirubin and LDH. Patient's haptoglobin and Henna testing or still pending. Vasc score is elevated and she would benefit from anticoagulation if hemoglobin were to stabilized. Converted to NSR 04/19/22 and remains in SR on telemetry. Continue current management (2) New onset a-fib: Code(s): I48.91 - Unspecified atrial fibrillation Status: Acute Assessment and Plan: see above. (3) Intractable nausea and vomiting: Code(s): R11.2 - Nausea with vomiting, unspecified Status: Acute Assessment and Plan: Patient has had intractable nausea vomiting for the past 6 weeks. The patient already has an outpatient EGD scheduled coming up this Tuesday. CT scan positive for gastritis and bladder distention Patient planned to have EGD in 2 days outpatient GI has been consulted. Patient has elevated QTC so Zofran avoided. Phenergan 12.5 mg x1 given EGD 04/21 without abnormality or acute bleeding. Continued on Bentyl and PPI PO Stable. (4) Acute on chronic anemia: Code(s): D64.9 - Anemia, unspecified Status: Acute Assessment and Plan: H/H 7.9/25.8 on admission. MCV, MCH and MCHC with normal limits. H/O hereditary hemolytic anemia per family, she was referred to [facility] Hematology several years ago, but not seen. She had a blood transfusion approximately 5 years ago per family. Haptoglobin pending and direct henna negative. LDH and Tbili elevated on admission. GI consulted and EGD on 04/21 without acute bleeding. FOBT negative. Hgb dropped to 5.7 and she received 2 units PRBC on 04/20 Iron elevated at 235, TIBC low at 255, 92% saturation Repeat Hgb 9.7 Check B12 and folate. consult Oncology/Hematology Bone marrow biopsy tomorrow, NPO after midnight (5) Hemolytic anemia: Code(s): D58.9 - Hereditary hemolytic anemia, unspecified Status: Acute Assessment and Plan: As above. (6) Urinary tract infection: Qualifiers: Hematuria presence: without hematuria Urinary tract infection type: acute cystitis Qualified Code(s): N30.00 - Acute cystitis without hematuria Code(s): N39.0 - Urinary tract infection, site not specified Status: Resolved Assessment and Plan: CT scanned compounded by urinary retention and possible urinary tract infection given the patient's report of recent dysuria. UA positive for nitrites Urine culture negative Blood culture no growth to date Rocephin discontinued 04/20/22 (7) Lactic acidosis: Code(s): E87.20 - Acidosis, unspecified Status: Acute Assessment and Plan: The patient did have lactic acidosis likely due to volume depletion. Lactic acidosis resolved after IV fluid hydration. Given urine culture is negative, likely secondary to hemolytic anemia (8) Gastritis: Qualifiers: Chronicity: acute Gastritis bleeding: without bleeding Gastritis type: unspecified gastritis Qualified Code(s): K29.00 - Acute gastritis without bleeding Code(s): K29.70 - Gastritis, unspecified, without bleeding
[2022-04-22 09:23] LABS: Hematocrit 34.8 % (37.0-47.0); Hemoglobin 11.3 g/dL (12.0-15.0); Mean Corpuscular HGB Conc 32.5 g/dl (32-36); Mean Corpuscular Hemoglobin 30.2 pg (26-34); Mean Platelet Volume 10.6 fl (7.4-10.4); Platelet Count Result 203 k/mm3 (150-375); Red Blood Count 3.74 M/mm3 (4.2-5.4); Red Cell Distribution Width 14.8 % (11.5-14.5); White Blood Count 6.4 K/mm3 (4.5-10.0)
[2022-04-22 09:34] LABS: Alanine Aminotransferase 13 U/L (6-35); Albumin Level 3.9 g/dL (3.5-5.1); Alkaline Phosphatase 93 U/L (38-126); Anion Gap 6 mmol/L (8-16); Aspartate Amino Transferase 19 U/L (14-36); Bilirubin,Total 0.6 mg/dL (0.2-1.3); Blood Urea Nitrogen 6 mg/dL (7-17); Calcium 8.4 mg/dL (8.4-10.2); Carbon Dioxide 27 mmol/L (22-30); Chloride 103 mmol/L (98-107); Estimated CRCL calculation 76 ml/min; Estimated Glomerular Filt Rate > 60; Glucose 184 mg/dL (65-110); Potassium 3.7 mmol/L (3.4-5.0); Sodium 136 mmol/L (137-145)
[2022-04-22 10:40] LABS: Folic Acid 5.4 ng/mL (2.76->20); Vitamin B12 > 1000.0 pg/mL (239-931)
--- NOTE | 2022-04-22 11:41 | PCOTNOTE ---
Spoke with hospitalist and confirmed with nursing, that pt. put on bedrest orders due to plan for bone biopsy, which has now been scheduled for tomorrow. Pt. safe to be seen by therapy services today.
[2022-04-22 12:12] LABS: Glucose Point of Care 308 mg/dl (65-105)
--- NOTE | 2022-04-22 12:32 | WPDANESPN ---
Anes - Prog Note Post-Op Date/Time: 04/22/22 12:32 Vital Signs: Last Vital Signs Temp 36.6 C 04/22/22 08:16 Pulse 91 04/22/22 08:35 Resp 16 04/22/22 08:16 BP 151/67 H 04/22/22 08:16 Pulse Ox 100 04/22/22 08:16 O2 Del Method Room Air 04/22/22 08:00 Pain Score (VAS): 0 I/O: Intake & Output 04/21/22 04/22/22 04/22/22 23:59 07:59 15:59 Intake Total 440 450 120 Output Total 1300 1450 Balance -860 -1000 120 Laboratory Tests 04/22/22 09:04 04/22/22 09:04 04/18/22 04/21/22 04/21/22 19:57 04:44 12:56 WBC RBC Hgb Hct MCV MCH MCHC RDW Plt Count MPV Sodium Potassium Chloride Carbon Dioxide Anion Gap BUN Creatinine Estim Creat Clear Calc Estimated GFR Glucose POC Capillary Glucose 133 H Calcium Dianna Transferrin Receptr Pending Total Bilirubin AST ALT Alkaline Phosphatase Total Protein Albumin Vitamin B12 Methylmalonic Acid Pending Folate Crossmatch See Detail 04/21/22 04/21/22 04/22/22 16:28 19:50 08:01 WBC RBC Hgb Hct MCV MCH MCHC RDW Plt Count MPV Sodium Potassium Chloride Carbon Dioxide Anion Gap BUN Creatinine Estim Creat Clear Calc Estimated GFR Glucose POC Capillary Glucose 263 H 279 H 199 H Calcium Dianna Transferrin Receptr Total Bilirubin AST ALT Alkaline Phosphatase Total Protein Albumin Vitamin B12 Methylmalonic Acid Folate Crossmatch 04/22/22 04/22/22 04/22/22 09:04 09:04 11:51 WBC 6.4 RBC 3.74 L Hgb 11.3 L Hct 34.8 L MCV 93.0 MCH 30.2 MCHC 32.5 RDW 14.8 H Plt Count 203 MPV 10.6 H Sodium 136 L Potassium 3.7 Chloride 103 Carbon Dioxide 27 Anion Gap 6 L BUN 6 L Creatinine 0.50 L Estim Creat Clear Calc 76 Estimated GFR > 60 Glucose 184 H POC Capillary Glucose 308 H Calcium 8.4 Dianna Transferrin Receptr Total Bilirubin 0.6 AST 19 ALT 13 Alkaline Phosphatase 93 Total Protein 7.0 Albumin 3.9 Vitamin B12 > 1000.0 H Methylmalonic Acid Folate 5.4 Crossmatch Patient Feedback: Patient satisfied with anesthetic care.
[2022-04-22] MEDS: INSULIN ASPART (*BKC) 100 UNITS/ML SUB-Q (12:41)
[2022-04-22] MEDS: polyethylene glycoL 3350 17 GM POWD.PACK PO (12:41)
--- NOTE | 2022-04-22 13:43 | PC.NURSE ---
This patient, Leonard Nunn, was transferred to [ [id number]] on 04/22/22 at 1343. Personal belongings sent with patient. Report given to [ FRANCHESKA Randhawa]. Appropriate documentation sent with patient.
[2022-04-22 17:25] LABS: Glucose Point of Care 165 mg/dl (65-105)
[2022-04-22] MEDS: ACETAMINOPHEN 325 MG TABLET 650 MG PO (20:26)
[2022-04-22] MEDS: SENNA/DOCUSATE SODIUM TABLET 1 TAB PO (20:27)
[2022-04-22] MEDS: ATORVASTATIN 40 MG TABLET PO (20:27)
[2022-04-22 21:23] LABS: Haptoglobin 10 mg/dL (43-212)
[2022-04-22 22:30] LABS: Glucose Point of Care 186 mg/dl (65-105)
[2022-04-23] VITALS: PULSE 70
[2022-04-23 04:00] VITALS: PULSE 67
[2022-04-23 05:44] VITALS: BP 148/63; PULSE 68; RESP 16; TEMP 36.6; O2SAT 100
[2022-04-23 06:02] LABS: Hematocrit 34.4 % (37.0-47.0); Hemoglobin 11.1 g/dL (12.0-15.0)
[2022-04-23 06:09] LABS: INR 1.1; Prothrombin Time 13.3 Seconds (11.1-14.7)
[2022-04-23 06:10] LABS: Partial Thromboplastin Time 36.6 SECONDS (22.3-36.8)
--- NOTE | 2022-04-23 08:23 | WPDMODSED ---
Moderate Sedation Note-Pt Data Patient Data Diagnosis: Normocytic anemia. Present Complaint: Normocytic anemia. Procedure to be performed/Plan: Fluoro-guided bone marrow biopsy of ilium. Allergies Allergy/AdvReac Type Severity Reaction Status Date / Time Penicillins Allergy Intermediate Swelling Verified 04/21/22 11:08 Home Medications Medication Instructions Recorded Confirmed Type atorvastatin 40 mg tablet 40 mg PO HS 03/26/22 04/18/22 History dicyclomine 20 mg tablet 20 mg PO BID 03/26/22 04/18/22 History glimepiride 2 mg tablet 2 mg PO QAM 03/26/22 04/18/22 History metformin 1,000 mg tablet 1,000 mg PO DAILY 03/26/22 04/18/22 History oxycodone-acetaminophen 5 mg-325 1 tablet PO Q6H PRN pain #20 tabs 03/26/22 04/18/22 Rx mg tablet (Percocet) carbidopa 25 mg-levodopa 100 mg 1 tablet PO TID 04/18/22 04/19/22 History tablet pantoprazole 40 mg tablet,delayed 40 mg PO DAILY 04/18/22 04/18/22 History release aspirin 81 mg tablet 81 mg PO DAILY 04/19/22 04/19/22 History Current Medications: Active Medications Acetaminophen (Acetaminophen 325 Mg Tablet) 650 mg PO Q6H PRN PRN Reason: Mild Pain (1-3) or Fever Last Admin: 04/22/22 20:26 Dose: 650 mg Aspirin (Aspirin 81 Mg Enteric Tablet) 81 mg PO QAM [facility] Last Admin: 04/22/22 08:35 Dose: 81 mg Atorvastatin Calcium (Atorvastatin 40 Mg Tablet) 40 mg PO [facility] Last Admin: 04/22/22 20:27 Dose: 40 mg Bisacodyl (Bisacodyl 10 Mg Suppository) 10 mg RECTAL QAM PRN PRN Reason: Constipation Carbidopa/Levodopa (Carbidopa/Levodopa 25/100 Mg Tablet) 2 tablet PO TIDWM [facility] Last Admin: 04/22/22 16:20 Dose: 2 tablet Dextrose (Dextrose 50% 25 Gm/50 Ml Syringe) 12.5 gm IV PUSH PRN PRN; Protocol PRN Reason: Hypoglycemia Dicyclomine HCl (Dicyclomine Hcl 10 Mg Capsule) 20 mg PO BID [facility] Last Admin: 04/22/22 16:20 Dose: 20 mg Glimepiride (Glimepiride 2 Mg Tablet) 2 mg PO DAILY@0800 [facility] Last Admin: 04/22/22 08:35 Dose: 2 mg Glucagon (Glucagon For Inj 1 Mg Vial) 1 mg IM PRN PRN; Protocol PRN Reason: Hypoglycemia Glucose (Glucose Oral Gel 15 Gm Of Glucse In 37.5 Gm Tube) 15 gm PO PRN PRN; Protocol PRN Reason: Hypoglycemia Dextrose (Dextrose 5% 1,000 Ml) 1,000 mls @ 100 mls/hr IVPB PRN PRN; Protocol PRN Reason: Hypoglycemia Insulin Aspart (Insulin Aspart (*Bkc) 100 Units/Ml) 2 - 5 units SUB-Q TIDWM [facility]; Protocol Last Admin: 04/22/22 17:41 Dose: Not Given Metformin HCl (Metformin Hcl 500 Mg Tablet) 1,000 mg PO DAILY@0800 [facility] Last Admin: 04/22/22 08:35 Dose: 1,000 mg Metoprolol Tartrate (Metoprolol Tartrate 25 Mg Tablet) 25 mg PO Q12HR [facility] Last Admin: 04/22/22 20:27 Dose: 25 mg Neomycin/Polymyxin/Bacitracin (Neomycin/Polymyxin/Bacitracin Ointment 15 Gm Tube) 1 applic TOPICAL PRN PRN PRN Reason: with dressing changes Oxycodone/Acetaminophen (Oxycodone/Acetaminophen (*Crx) 5-325 Mg Tablet) 1 tablet PO Q6H PRN PRN Reason: pain 7-10 Last Admin: 04/21/22 03:14 Dose: 1 tablet Pantoprazole Sodium (Pantoprazole 40 Mg Tablet) 40 mg PO DAILY [facility] Last Admin: 04/22/22 08:35 Dose: 40 mg Polyethylene Glycol (Polyethylene Glycol 3350 17 Gm Powd.Pack) 17 gm PO QAM [facility] Last Admin: 04/22/22 12:41 Dose: 17 gm Senna/Docusate Sodium (Senna/Docusate Sodium Tablet) 1 tab PO HS [facility] Last Admin: 04/22/22 20:27 Dose: 1 tab Sedation/Anesthesia: No previous sedation/anesthesia problems (including family history). [facility] Past Medical History Medical History (Updated 04/22/22 @ 11:52 by Cheryl Garcia, DIVYA) CVA (cerebral vascular accident) Dementia due to Parkinson's disease Depression with anxiety Essential hypertension Fibroid uterus GERD (gastroesophageal reflux disease) Hemolytic anemia History of ectopic Hyperlipidemia Kidney stones Type 2 diabetes mellitus Surgical History Surgical History (Updated 04/21/22 @ 18:58 by Willie Magana MD) History of cholecystectomy Status post cataract extraction and i
--- NOTE | 2022-04-23 08:32 | PC.NURSE ---
Patient off floor for bone marrow aspiration; will pass AM meds when she returns
[2022-04-23] MEDS: ASPIRIN 81 MG ENTERIC TABLET PO (09:36)
[2022-04-23] MEDS: CARBIDOPA/LEVODOPA 25/100 MG TABLET 2 TABLET PO ×2 (09:36→12:32)
[2022-04-23] MEDS: DICYCLOMINE HCL 10 MG CAPSULE 20 MG PO (09:36)
[2022-04-23] MEDS: metFORMIN HCL 500 MG TABLET 1000 MG PO (09:36)
[2022-04-23 09:37] VITALS: PULSE 82
[2022-04-23] MEDS: GLIMEPIRIDE 2 MG TABLET PO (09:37)
[2022-04-23] MEDS: METOPROLOL TARTRATE 25 MG TABLET PO (09:37)
[2022-04-23] MEDS: PANTOPRAZOLE 40 MG TABLET PO (09:41)
[2022-04-23] MEDS: polyethylene glycoL 3350 17 GM POWD.PACK PO (09:55)
[2022-04-23 10:12] LABS: Glucose Point of Care 186 mg/dl (65-105)
--- NOTE | 2022-04-23 11:29 | PCNFU ---
Nutrition Follow-Up Complete: Inadequate oral intake related to loss of appetite, food choices as evidenced by 10% breakfast intake, pr report Goal: Improved PO intake at least 50% meals and supplements Patient is progressing towards goal. We will continue current goal. Pt current nutrition is DBCC/Low Fiber. Last recorded weight is 58.2 kg. Bowel Motility: No Bm reported Labs Reviewed:Hct 34.4,Hgb 11.1 Meds Noted:Protonix, Miralax, Senokot, Lopressor Skin: WNL Additional Notes: Patient has Bone Marrow Biopsy today. Diet order has advanced to a DBCC/Low fiber. Patient has been tolerating diet 50-100% of meals. Patient had cereal,banana and milk today. Patient remains on diet supplements of Glucerna BID providing an additional 220 kcals and 10 gms protein. Agree with diet orders. Monitoring intakes, weights, labs, plan of care, supplement tolerance. Follow up in 5 days
[2022-04-23 12:19] LABS: Glucose Point of Care 301 mg/dl (65-105)
[2022-04-23] MEDS: INSULIN ASPART (*BKC) 100 UNITS/ML SUB-Q (12:33)
--- NOTE | 2022-04-23 12:37 | P.DS_ITS ---
DS: Admitting Diagnosis Discharge Date 04/23/2022 Admitting Diagnosis Atrial fibrillation with rapid ventricular responseNew onset a-fib Intractable nausea and vomiting Possible Urinary tract infection H/O Hemolytic anemia Acute on chronic anemia Leiomyoma of uterus, unspecified Lactic acidosis Gastritis Retention of urine, unspecified Hypomagnesemia DS: Discharge Diagnosis Discharge Diagnosis (1) Atrial fibrillation with rapid ventricular response: Code(s): I48.91 - Unspecified atrial fibrillation Status: Acute Assessment and Plan: Patient noted to have new onset AFib RVR as patient was unaware of prior episodes of arrhythmia. * Echocardiogram revealed EF of 50-55%, cannot exclude wall motion abnormalities, grade 1 diastolic dysfunction * Initially treated with Cardizem drip and PO Cardizem continued. * Cardiology has been consulted and appreciate recommendations * Patient transitioned to oral metoprolol 25 mg Q12 hours by cardiology * [id number] score 4. Not a candidate for active anticoagulation given her acute on chronic anemia. * Converted to NSR 04/19/22 and remained in SR on telemetry. Continue current management (2) New onset a-fib: Code(s): I48.91 - Unspecified atrial fibrillation Status: Acute Assessment and Plan: see above. (3) Intractable nausea and vomiting: Code(s): R11.2 - Nausea with vomiting, unspecified Status: Acute Assessment and Plan: Patient has had intractable nausea vomiting for the past 6 weeks. The patient already has an outpatient EGD scheduled coming up this Tuesday. * CT scan positive for gastritis and bladder distention * Patient planned to have EGD in 2 days outpatient * GI has been consulted. * Patient has elevated QTC so Zofran avoided. Phenergan 12.5 mg x1 given * EGD 04/21 without abnormality or acute bleeding. * Continued on Bentyl and PPI PO * Stable. (4) Acute on chronic anemia: Code(s): D64.9 - Anemia, unspecified Status: Acute Assessment and Plan: H/H 7.9/25.8 on admission. MCV, MCH and MCHC with normal limits. H/O hereditary hemolytic anemia per family, she was referred to [facility] Hematology several years ago, but not seen. She had a blood transfusion approximately 5 years ago per family. * Haptoglobin pending and direct henna negative. LDH and Tbili elevated on admission. * GI consulted and EGD on 04/21 without acute bleeding. * FOBT negative. * Hgb dropped to 5.7 and she received 2 units PRBC on 04/20 * Iron elevated at 235, TIBC low at 255, 92% saturation * Repeat Hgb 9.7 * B12 and folate within normal limits * consult Oncology/Hematology * Bone marrow biopsy 04/23/22 and results pending (5) Urinary tract infection: Qualifiers: Hematuria presence: without hematuria Urinary tract infection type: acute cystitis Qualified Code(s): N30.00 - Acute cystitis without hematuria Code(s): N39.0 - Urinary tract infection, site not specified Status: Ruled-out Assessment and Plan: CT scanned compounded by urinary retention and possible urinary tract infection given the patient's report of recent dysuria. * UA positive for nitrites * Urine culture negative * Blood culture no growth to date * Rocephin discontinued 04/20/22 (6) Lactic acidosis: Code(s): E87.20 - Acidosis, unspecified Status: Acute Assessment and Plan: The patient did have lactic acidosis likely due to volume depletion. * Lactic acidosis resolved after IV fluid hydration. Given urine culture is negative
--- NOTE | 2022-04-23 12:37 | PM.DS ---
DS: Admitting Diagnosis Discharge Date 04/23/2022 Admitting Diagnosis Atrial fibrillation with rapid ventricular responseNew onset a-fib Intractable nausea and vomiting Possible Urinary tract infection H/O Hemolytic anemia Acute on chronic anemia Leiomyoma of uterus, unspecified Lactic acidosis Gastritis Retention of urine, unspecified Hypomagnesemia DS: Discharge Diagnosis Discharge Diagnosis (1) Atrial fibrillation with rapid ventricular response: Code(s): I48.91 - Unspecified atrial fibrillation Status: Acute Assessment and Plan: Patient noted to have new onset AFib RVR as patient was unaware of prior episodes of arrhythmia. Echocardiogram revealed EF of 50-55%, cannot exclude wall motion abnormalities, grade 1 diastolic dysfunction Initially treated with Cardizem drip and PO Cardizem continued. Cardiology has been consulted and appreciate recommendations Patient transitioned to oral metoprolol 25 mg Q12 hours by cardiology [id number] score 4. Not a candidate for active anticoagulation given her acute on chronic anemia. Converted to NSR 04/19/22 and remained in SR on telemetry. Continue current management (2) New onset a-fib: Code(s): I48.91 - Unspecified atrial fibrillation Status: Acute Assessment and Plan: see above. (3) Intractable nausea and vomiting: Code(s): R11.2 - Nausea with vomiting, unspecified Status: Acute Assessment and Plan: Patient has had intractable nausea vomiting for the past 6 weeks. The patient already has an outpatient EGD scheduled coming up this Tuesday. CT scan positive for gastritis and bladder distention Patient planned to have EGD in 2 days outpatient GI has been consulted. Patient has elevated QTC so Zofran avoided. Phenergan 12.5 mg x1 given EGD 04/21 without abnormality or acute bleeding. Continued on Bentyl and PPI PO Stable. (4) Acute on chronic anemia: Code(s): D64.9 - Anemia, unspecified Status: Acute Assessment and Plan: H/H 7.9/25.8 on admission. MCV, MCH and MCHC with normal limits. H/O hereditary hemolytic anemia per family, she was referred to [facility] Hematology several years ago, but not seen. She had a blood transfusion approximately 5 years ago per family. Haptoglobin pending and direct henna negative. LDH and Tbili elevated on admission. GI consulted and EGD on 04/21 without acute bleeding. FOBT negative. Hgb dropped to 5.7 and she received 2 units PRBC on 04/20 Iron elevated at 235, TIBC low at 255, 92% saturation Repeat Hgb 9.7 B12 and folate within normal limits consult Oncology/Hematology Bone marrow biopsy 04/23/22 and results pending (5) Urinary tract infection: Qualifiers: Hematuria presence: without hematuria Urinary tract infection type: acute cystitis Qualified Code(s): N30.00 - Acute cystitis without hematuria Code(s): N39.0 - Urinary tract infection, site not specified Status: Ruled-out Assessment and Plan: CT scanned compounded by urinary retention and possible urinary tract infection given the patient's report of recent dysuria. UA positive for nitrites Urine culture negative Blood culture no growth to date Rocephin discontinued 04/20/22 (6) Lactic acidosis: Code(s): E87.20 - Acidosis, unspecified Status: Acute Assessment and Plan: The patient did have lactic acidosis likely due to volume depletion. Lactic acidosis resolved after IV fluid hydration. Given urine culture is negative, likely secondary to hemolytic anemia (7) Gastritis: Qualifiers: Chronicity: acute Gastritis bleeding: without bleeding Gastritis type: unspecified gastritis Qualified Code(s): K29.00 - Acute gastritis without bleeding Code(s): K29.70 - Gastritis, unspecified, without bleeding Status: Acute Assessment and Plan: Patient's nausea vomiting is likely multifactorial due to gastritis note
[2022-04-24 03:34] LABS: Methylmalonic Acid 79 nmol/L (87-318)
== END 2022-04-23 14:25 | disposition home health service (06) | DRG 812 ==
LOC: ANHED 20:32 → ANHIMU 23:14 → ANH2MED 04-23 10:14 → ANHIMU 04-26 15:02
PROVIDERS: Internal Medicine; Internal Medicine Critical Care Medicine; Internal Medicine Gastroenterology; Internal Medicine Hematology & Oncology; Physician Assistant; Admitting Provider Internal Medicine; Emergency Provider Physician Assistant; PCP Family Medicine; Visit Provider Nurse Practitioner Family
PROC: 0DJ08ZZ Inspection of Upper Intestinal Tract, Via Natural or Artificial Opening Endoscopic (ICD-10-PCS; CPT 43235; principal; 2022-04-21 12:00)
DX: D64.9 Anemia, unspecified (principal); N30.00 Acute cystitis without hematuria; E87.20 Acidosis, unspecified; D58.9 Hereditary hemolytic anemia, unspecified; I48.91 Unspecified atrial fibrillation; D25.9 Leiomyoma of uterus, unspecified; E83.42 Hypomagnesemia; E78.5 Hyperlipidemia, unspecified; E11.9 Type 2 diabetes mellitus without complications; G20 Parkinson's disease; G89.29 Other chronic pain; F02.80 Dementia in other diseases classified elsewhere, unspecified severity, without behavioral disturbance, psychotic disturbance, mood disturbance, and anxiety; F41.8 Other specified anxiety disorders; I10 Essential (primary) hypertension; K29.00 Acute gastritis without bleeding; K21.9 Gastro-esophageal reflux disease without esophagitis; N81.4 Uterovaginal prolapse, unspecified; R33.9 Retention of urine, unspecified; Z90.49 Acquired absence of other specified parts of digestive tract; Z20.822 Contact with and (suspected) exposure to COVID-19; Z98.42 Cataract extraction status, left eye; Z86.73 Personal history of transient ischemic attack (TIA), and cerebral infarction without residual deficits; Z96.1 Presence of intraocular lens; Z87.891 Personal history of nicotine dependence; Z79.84 Long term (current) use of oral hypoglycemic drugs; Z79.82 Long term (current) use of aspirin; Z88.0 Allergy status to penicillin
CPT/HCPCS: 36415; 36430; 38222; 51702; 74177; 76830; 76856; 80048; 80053; 81001; 82274; 82607; 82746; 82948; 83010; 83540; 83550; 83605; 83615; 83690; 83735; 83921; 84238; 84439; 84443; 84484; 85014; 85018; 85025; 85027; 85046; 85610; 85730; 86850; 86880; 86900; 86901; 86923; 87040; 87081; 87086; 88184; 88185; 88305; 88311; 88313; 93005; 93306; 96361; 96365; 96366; 96367; 96375; 96376; 97161; 97165; 99285; A9270; C9113; G0378; J0153; J0696; J1642; J1815; J2250; J2270; J2405; J2550; J2704; J3010; J3475; J3480; J7030; J7040; J7050; J7120; P9016; Q9967

== ENCOUNTER 2022-05-01 16:07 | Emergency (ER) | payer MEDICARE, SELFPAY ==
--- NOTE | ~2022-05-01 | CT_ITS ---
EXAMINATION: CT abdomen pelvis w con DATE: 05/01/2022 20:10 INDICATION: vomiting, disffuse abdominal pain TECHNIQUE: Computed tomography (CT) of the abdomen and pelvis was performed with 100 mL Omnipaque-350 intravenous contrast. Automated exposure control and iterative reconstruction technique were employe d. The dose-length product was 234.52 mGy-cm. COMPARISON: 04/18/2022. FINDINGS: Lower thorax: Minimal dependent atelectasis/scar Liver: Normal. Biliary/Gallbladder: Gallbladder is absent. Mild intrahepatic bile duct dilation likely secondary to cholecystectomy. Pancreas: No mass or duct dilation. Spleen: Normal. Adrenals: Right adrenal adenoma. Kidneys: Calcifications in the renal bo, likely vascular. Bilateral scarring. GI tract: Distal esophageal and gastric wall edema. No small or large bowel dilation. Appendix not co nfidently visualized. Mesentery/Peritoneum: No ascites, mass, or free air. Retroperitoneum: No mass. Atherosclerotic abdominal aortic and/or arterial calcifications. Pelvis: Urinary bladder wall edema. Archuleta catheter, balloon in the bladder lumen. Uterine calcificati ons, likely fibroids. Soft Tissues: Soft tissues and body wall unremarkable. Bones: No acute osseous finding. IMPRESSION: Esophagitis/gastritis. Cystitis. Reviewed, dictated and finalized at location K.
[2022-05-01 16:10] VITALS: BP 184/73; PULSE 73; RESP 16; TEMP 36.5; O2SAT 99
[2022-05-01 17:39] LABS: Basophils Percent Auto 0.4 % (0.2-1.2); Eosinophils Absolute Auto 0.1 K/mm3 (0-0.3); Eosinophils Percent Auto 2.3 % (0-4.4); Hematocrit 39.3 % (37.0-47.0); Hemoglobin 12.6 g/dL (12.0-15.0); Immature Granulocyte Absolute 0.01 K/mm3 (0.00-0.031); Immature Granulocyte Percent A 0.2 % (0-0.5); Lymphocytes Absolute Auto 1.83 K/mm3 (0.9-3.2); Lymphocytes Percent Auto 34.9 % (18.3-44.2); Mean Corpuscular HGB Conc 32.1 g/dl (32-36); Mean Corpuscular Hemoglobin 29.4 pg (26-34); Mean Corpuscular Volume 91.6 fl (80-100); Mean Platelet Volume 10.5 fl (7.4-10.4); Monocytes Absolute Auto 0.5 K/mm3 (0.1-0.6); Monocytes Percent Auto 8.6 % (2.6-8.5); Neutrophils Absolute Auto 2.8 K/mm3 (1.3-6.7); Neutrophils Percent Auto 53.6 % (45.5-73.1); Platelet Count Result 318 k/mm3 (150-375); Red Blood Count 4.29 M/mm3 (4.2-5.4); Red Cell Distribution Width 13.8 % (11.5-14.5); White Blood Count 5.3 K/mm3 (4.5-10.0)
[2022-05-01 17:50] LABS: Lactic Acid Reflex 1.3 mmol/L (0.7-2.0)
[2022-05-01 17:51] LABS: Alanine Aminotransferase 9 U/L (6-35); Albumin Level 5.1 g/dL (3.5-5.1); Alkaline Phosphatase 121 U/L (38-126); Anion Gap 9 mmol/L (8-16); Aspartate Amino Transferase 22 U/L (14-36); Bilirubin,Total 0.6 mg/dL (0.2-1.3); Blood Urea Nitrogen 15 mg/dL (7-17); Calcium 10.1 mg/dL (8.4-10.2); Carbon Dioxide 30 mmol/L (22-30); Chloride 101 mmol/L (98-107); Estimated CRCL calculation 51 ml/min; Estimated Glomerular Filt Rate > 60; Glucose 79 mg/dL (65-110); Lipase 111 U/L (23-300); Potassium 3.9 mmol/L (3.4-5.0); Sodium 140 mmol/L (137-145)
[2022-05-01 18:12] LABS: Appearance Urine Cloudy (Clear); Bacteria Urine 3+ /hpf; Bilirubin Urine 1+ (Negative); Blood Urine 1+ (Negative); Color Urine Dark Yellow (Yellow); Glucose Urine UA Negative (Negative); Ketones Urine 1+ mg/dL (Negative); Leukocyte Esterase Ur 2+ LEU/UL (Negative); Nitrate Urine Negative (Negative); Non Pathogenic Casts 0-2; Protein Urine 3+ mg/dL (Negative); RBC Urine 21-50 /hpf (0-2); Specific Grav Ur 1.024 (1.001-1.035); Squamous Epithelial Cell Urine None seen /hpf (Few); WBC Urine >100 /hpf; pH Urine 5.5 (5.0-9.0)
--- NOTE | 2022-05-01 18:15 | ED.NAVMDI ---
HPI - Nausea/Vomiting/Diarrhea General Chief complaint: Nausea/Vomiting/Diarrhea Stated complaint: vomiting Time Seen by Provider: 05/01/22 17:31 History of Present Illness HPI Narrative: Patient is a 77-year-old female with a history of Parkinson's, A-fib not on AC, hyperlipidemia, hypertension presenting with nausea and vomiting. Patient's daughter in law is at bedside and helps with the history. Reports that the patient was recently hospitalized due to abdominal pain and vomiting. She was found to have new onset A-fib and was started on metoprolol. She was able to be discharged home with a Archuleta catheter in place and they have an appointment with urogynecology on Tuesday. Unfortunately, for the last day or so patient has been vomiting. They have Zofran at home but patient was too nervous to take it due to the vomiting. She complains of chronic diffuse abdominal pain. No fevers, headache, numbness or weakness, chest pain, shortness of breath, cough, leg swelling. Archuleta catheter remains in place. Related Data Home Medications Medication Instructions Recorded Confirmed atorvastatin 40 mg tablet 40 mg PO HS 03/26/22 04/18/22 dicyclomine 20 mg tablet 20 mg PO BID 03/26/22 04/18/22 glimepiride 2 mg tablet 2 mg PO QAM 03/26/22 04/18/22 metformin 1,000 mg tablet 1,000 mg PO DAILY 03/26/22 04/18/22 carbidopa 25 mg-levodopa 100 mg 1 tablet PO TID 04/18/22 04/19/22 tablet pantoprazole 40 mg tablet,delayed 40 mg PO DAILY 04/18/22 04/18/22 release aspirin 81 mg tablet 81 mg PO DAILY 04/19/22 04/19/22 Allergies Allergy/AdvReac Type Severity Reaction Status Date / Time Penicillins Allergy Intermediate Swelling Verified 04/21/22 11:08 Review of Systems Review of Systems: All systems reviewed & are unremarkable except as noted in HPI and below PMFSH Past Medical History Medical History CVA (cerebral vascular accident) Dementia due to Parkinson's disease Depression with anxiety Essential hypertension Fibroid uterus GERD (gastroesophageal reflux disease) Hemolytic anemia History of ectopic Hyperlipidemia Kidney stones Type 2 diabetes mellitus Surgical History Surgical History History of cholecystectomy Status post cataract extraction and insertion of intraocular lens of left eye Family History Family History Mother Diabetes mellitus Sibling Diabetes mellitus Sibling Heart attack Father Homicide Victim of homicide Daughter Hypothyroidism Social History Social History Social History: The patient lives with her son and [id number] and their children. She has lived with them since 2021. She is a retired OBGYN nurse. She has 3 sons and 1 daughter. She is legally from her . She used to smoke marijuana on occasion but has not done so in many years. She used to drink alcohol on occasion in in moderation but has not done so in quite some time. She ambulates with a walker or cane and also has a wheelchair available at home. Code status: Full code [facility] power of doctor of nurse anesthesia practice: Cuong Koroma (daughter in-law) Smoking packs per day: 1 Smoking cigarettes per day: 20.0 Years smoked: 20 Smoking pack-years: 20.00 Smoking status: Former smoker Tobacco type: cigarettes Alcohol intake: never Substance use: former Substance use type: marijuana Lack of Transportation: No Lack of Food: Never True Current Housing: I Have Housing Concerned About Future Housing: No Difficulty Paying Gas/Electric Bills: No Difficulty Paying for Meds: No Currently Unemployed: No Education: Associate Degree Difficulty w/ Childcare or Family Care: No Living arrangements: with family Occupation/Education: retired Gender identity (if v
[2022-05-01 18:17] LABS: Add Urine Microscopic? YES
--- NOTE | 2022-05-01 18:42 | PC.NURSE ---
pt unable to complete ortho vs.
[2022-05-01 18:43] VITALS: BP 139/89; PULSE 86; RESP 16; O2SAT 99
--- NOTE | 2022-05-01 19:01 | PC.NURSE ---
iv infiltrated down in ct can. RN to try and place new iv with US
[2022-05-01] MEDS: PROCHLORPERAZINE EDISYLATE 10 MG/2 ML VIAL IV PUSH (20:14)
[2022-05-01] MEDS: FAMOTIDINE 20 MG/2 ML VIAL IV PUSH (20:14)
[2022-05-01] MEDS: LACTATED RINGERS 1,000 ML 999 ML IV CONT (20:38)
[2022-05-01 21:47] VITALS: BP 194/77; PULSE 101; RESP 13; O2SAT 100
[2022-05-01 22:09] VITALS: BP 182/84; PULSE 91; RESP 16; O2SAT 100
[2022-05-01 22:53] VITALS: BP 171/79; PULSE 93; RESP 12; O2SAT 98
== END 2022-05-01 22:55 | disposition home or self-care (01) ==
PROVIDERS: Emergency Medicine; Emergency Provider Emergency Medicine; PCP Family Medicine
DX: N39.0 Urinary tract infection, site not specified (principal); K21.00 Gastro-esophageal reflux disease with esophagitis, without bleeding; K29.70 Gastritis, unspecified, without bleeding; R11.2 Nausea with vomiting, unspecified; I48.91 Unspecified atrial fibrillation; I10 Essential (primary) hypertension; E78.5 Hyperlipidemia, unspecified; F02.80 Dementia in other diseases classified elsewhere, unspecified severity, without behavioral disturbance, psychotic disturbance, mood disturbance, and anxiety; E11.9 Type 2 diabetes mellitus without complications; Z79.84 Long term (current) use of oral hypoglycemic drugs; Z79.82 Long term (current) use of aspirin; Z86.73 Personal history of transient ischemic attack (TIA), and cerebral infarction without residual deficits; Z87.891 Personal history of nicotine dependence; Z79.891 Long term (current) use of opiate analgesic
CPT/HCPCS: 36415; 74177; 80053; 81001; 83605; 83690; 85025; 87086; 87147; 87181; 87186; 96361; 96365; 96375; 99284; J0696; J0780; J7120; Q9967